=== PATIENT | female | born 1935 | race Caucasian/White ===

== ENCOUNTER → 2022-01-17 14:14 | Outpatient (CLI) | payer MEDICARE, SELFPAY ==
--- NOTE | ~2022-01-17 | XR_ITS ---
EXAMINATION: XR lumbar spine 2-3V DATE: 01/17/2022 14:29 INDICATION: Low back pain TECHNIQUE: Anteroposterior and lateral views of the lumbar spine, and cone-down lateral view of the l umbosacral junction were obtained. COMPARISON: 07/17/2018 FINDINGS: Osteopenia limits sensitivity for fracture. There is a burst fracture of T11, new since the comparison examination. There there is mild loss of vertebral body heights at L2, L3, and L4. Alignm ent is normal. There is moderate loss of disc space height at L4-5 and L5-S1. IMPRESSION: 1. Age-indeterminate burst fracture of T11. 2. Mild compression fractures of L2, L3, and L4. Reviewed, dictated and finalized at location B.
== END ==
PROVIDERS: PCP Internal Medicine; Visit Provider Internal Medicine
DX: S22.081A Stable burst fracture of T11-T12 vertebra, initial encounter for closed fracture (principal); S32.020A Wedge compression fracture of second lumbar vertebra, initial encounter for closed fracture; S32.030A Wedge compression fracture of third lumbar vertebra, initial encounter for closed fracture; S32.040A Wedge compression fracture of fourth lumbar vertebra, initial encounter for closed fracture; X58.XXXA Exposure to other specified factors, initial encounter
CPT/HCPCS: 72100

== ENCOUNTER 2022-01-22 13:26 | Outpatient (CLI) | payer MEDICARE, SELFPAY ==
[2022-01-22 13:57] LABS: Appearance Urine Slightly Cloudy (Clear); Bilirubin Urine 1+ (Negative); Color Urine Yellow (Yellow); Glucose Urine UA Negative (Negative); Ketones Urine 1+ mg/dL (Negative); Leukocyte Esterase Ur 1+ LEU/UL (Negative); Nitrate Urine Negative (Negative); Protein Urine 2+ mg/dL (Negative); Specific Grav Ur 1.025 (1.001-1.035); Urobilinogen Urine 0.2 mg/dL (<2.0); pH Urine 5.5 (5.0-9.0)
[2022-01-22 14:24] LABS: Amorphous Sediment Urine Few; Budding Yeast Urine Present /hpf; Mucus Urine Rare /lpf; RBC Urine >75 /hpf (0-2); Squamous Epithelial Cell Urine Rare /hpf (Few); WBC Urine 31-50 /hpf
[2022-01-22 14:30] LABS: Add Urine Microscopic? YES; Blood Urine Trace-Intact (Negative)
== END 2022-01-22 13:27 | disposition home or self-care (01) ==
LOC: ANHLAB 13:27
PROVIDERS: PCP Internal Medicine; Visit Provider Internal Medicine
DX: N39.0 Urinary tract infection, site not specified (principal)
CPT/HCPCS: 81001; 87086; 87088; 87147

== ENCOUNTER 2022-01-31 08:33 | Outpatient (CLI) | payer MEDICARE, SELFPAY ==
--- NOTE | ~2022-01-31 | CT_ITS ---
EXAMINATION: CT abdomen pelvis wo/w con DATE: 01/31/2022 09:34 INDICATION: Kidney stone TECHNIQUE: Computed tomography (CT) of the abdomen and pelvis was performed without and subsequently with 130 CC Omnipaque 300 intravenous contrast. Automated exposure control and iterative reconstructi on technique were employed. Exam dose: 442.50 mGy-cm total exam DLP. COMPARISON: None. FINDINGS: There is mild discoid atelectasis or scarring at the lung bases. Normal heart size. No pericardial or pleural effusion. There is gallbladder wall thickening and contrast enhancement. No obvious gallstones are noted by CT examination. Ultrasound would be more sensitive. No pericholecystic fluid or fat stranding. The commo n bile duct measures up to 6.5 mm, borderline. No hepatic space-occupying mass lesion is noted otherwise. Normal splenic size. No pancreatic mass lesion or calcification. No pancreatic duct dilatation. No adrenal mass lesion. 4 mm upper pole left renal cyst. No urinary tract calculus or hydroureteronephrosis. The uterus appears to be present, with some fluid in the endometrial cavity. There is a prominent amount of fecal material within the colon; no bowel obstruction is evident. No e vidence of intraperitoneal free air. There is atherosclerotic calcification of the abdominal aorta but no aneurysm. No intraperitoneal or retroperitoneal or pelvic mass lesion or adenopathy or ascites is noted. Prominent burst fracture deformity and sclerosis of T11. Otherwise there is diffuse osteopenia. There is biconcavity of the lumbar vertebrae, most severe at L4. Grade 1 anterolisthesis at L4-5 due to prominent degenerative change at the apophyseal joints. Bilate ral hip osteoarthritis. IMPRESSION: Gallbladder wall thickening contrast enhancement. Recommend clinical correlation, possib ly gallbladder ultrasound. Very small anterior hepatic cysts, medial segment of the left hepatic lobe Common bile duct measures up to 6.5 mm, borderline. 4 mm upper pole left renal cyst. No urinary tract calculus or hydroureteronephrosis. The uterus appears to be present, with some fluid in the endometrial cavity. Prominent burst fracture deformity and sclerosis of T11. Otherwise there is diffuse osteopenia. There is biconcavity of the lumbar vertebrae, most severe at L4. Grade 1 anterolisthesis at L4-5 due to prominent degenerative change at the apophyseal joints. Bilate ral hip osteoarthritis. Reviewed, dictated and finalized at Location A. Reviewed, dictated and finalized at location B. IMPRESSION: Gallbladder wall thickening contrast enhancement. Recommend clinic al correlation, possibly gallbladder ultrasound. Very small anterior hepatic cysts, medial segment of the left hepatic lobe Common bile duct measures up to 6.5 mm, borderline. 4 mm upper pole left renal cyst. No urinary tract calculus or hydroureteronephr osis. The uterus appears to be present, with some fluid in the endometrial cavity. Prominent burst fracture deformity and sclerosis of T11. Otherwise there is dif fuse osteopenia. There is biconcavity of the lumbar vertebrae, most severe at L 4. Grade 1 anterolisthesis at L4-5 due to prominent degenerative change at the apo physeal joints. Bilateral hip osteoarthritis.
[2022-01-31 09:17] LABS: Estimated Glomerular Filt Rate 60
== END 2022-01-31 08:34 | disposition home or self-care (01) ==
PROVIDERS: PCP Internal Medicine; Visit Provider Internal Medicine
DX: R31.29 Other microscopic hematuria (principal); S22.081A Stable burst fracture of T11-T12 vertebra, initial encounter for closed fracture; X58.XXXA Exposure to other specified factors, initial encounter
CPT/HCPCS: 74178; Q9967

== ENCOUNTER 2022-02-12 14:40 | Outpatient (CLI) | payer MEDICARE, SELFPAY | END 2022-02-12 14:41 | disposition home or self-care (01) | PROVIDERS: PCP Internal Medicine; Visit Provider Internal Medicine | DX: N39.0 Urinary tract infection, site not specified (principal) | CPT/HCPCS: 87086; 87088 ==

== ENCOUNTER → 2022-02-21 07:32 | Outpatient (CLI) | payer MEDICARE, SELFPAY ==
--- NOTE | ~2022-02-21 | US_ITS ---
EXAMINATION: US abdomen limited DATE: 02/21/2022 07:52 INDICATION: Gallbladder wall thickening. TECHNIQUE: Multiple grayscale and Doppler ultrasound images of the abdomen were obtained. COMPARISON: CT abdomen and pelvis 01/31/2022 FINDINGS: Abdominal aorta is normal in caliber. The visualized portions of the head and body of the p ancreas are normal. The liver is normal without focal lesion. There is normal flow in main portal vei n. The gallbladder is normal in size. No gallstones. Gallbladder wall thickening is noted. There was no sonographic Peña sign. The common duct is normal and measures 3 mm. IMPRESSION: 1. Gallbladder wall thickening. This finding may be seen with chronic cholecystitis, chronic liver di sease, or interstitial edema. Reviewed, dictated and finalized at location A. IMPRESSION: 1. Gallbladder wall thickening. This finding may be seen with chronic cholecyst itis, chronic liver disease, or interstitial edema.
== END ==
PROVIDERS: PCP Internal Medicine; Visit Provider Internal Medicine
DX: R93.2 Abnormal findings on diagnostic imaging of liver and biliary tract (principal)
CPT/HCPCS: 76705

== ENCOUNTER 2022-04-16 14:06 | Outpatient (CLI) | payer MEDICARE, SELFPAY ==
--- NOTE | ~2022-04-16 | DEXA_ITS ---
Bone Density Report Name: JULIO C FOSTER Age: 86 Sex: Female Ethnicity: White Date of : 1935 Indication: postmenopausal; screening for osteoporosis; height loss; prior fracture; Referring Provider: IVETTE, GERBER Study: Bone densitometry was performed. Exam Date: April 16, 2022 Accession number: [id number] Bone Density: Region BMD T-score Z-score Classification AP Spine(L3, L4) 0.574 -4.8 -1.8 Osteoporosis Femoral Neck (Left) 0.430 -3.8 -1.3 Osteoporosis Total Hip (Left) 0.460 -4.0 -1.6 Osteoporosis Femoral Neck (Right) 0.421 -3.9 -1.3 Osteoporosis Total Hip (Right) 0.467 -3.9 -1.6 Osteoporosis Total Hip Mean 0.463 -4.0 -1.6 Osteoporosis World Health Organization criteria for BMD impression classify patients as: Normal (T-score at or above -1.0), Osteopenia (T-score between -1.0 and -2.5), or Osteoporosis (T-score at or below -2.5). 10-year Fracture Risk: FRAX not reported because: Some T-score for Spine Total or Hip Total or Femoral Neck at or below -2.5 Prior hip or vertebral fracture Clinical Information Provided by Patient: Have had a previous hip or vertebral fracture Has had a low trauma fracture Has used the following medications: Calcium Patient maximum height was 65 Menopause Age: 47 No regular weight bearing exercise Onset of menses at age 15 Number of children 1 Impression: The patient has established osteoporosis, based on the Total Spine T-score and the existence of a prior fracture. The patient has risk factors, including: previous fracture. Discussion: HIGH RISK OF FRACTURE. BONE DENSITY IS UNDESIRABLY LOW AT ONE OR MORE SKELETAL SITES, CONSISTENT WITH POSTMENOPAUSAL OSTEOPOROSIS. This patient's lowest T-score, in a patient who has previously fractured, meets the World Health Organization's (WHO) criteria for severe osteoporosis. In untreated patients, the risk of osteoporotic fracture increases approximately two-fold for each 1.0 SD decrease in T-score. Low bone density is not the only risk factor for fracture; also consider factors such as patient's age, frailty or poor health, risk of falling, risk of injury, previous osteoporotic fracture, family history of osteoporosis, cigarette smoking, low body weight, etc. Not everyone with low bone mineral density has osteoporosis; osteomalacia and other metabolic bone disorders should also be considered. Patients who have osteoporosis should be evaluated for specific diseases and conditions (secondary causes) that may cause or contribute to bone loss. The [place] Association of Clinical Endocrinologists (AACE) and National Osteoporosis Foundation (NOF) recommend pharmacologic intervention for all postmenopausal women with a previous hip or vertebral fracture and a T-score in this range. The patient should follow a healthful
== END 2022-04-16 14:07 | disposition home or self-care (01) ==
PROVIDERS: PCP Internal Medicine; Visit Provider Internal Medicine
DX: M81.0 Age-related osteoporosis without current pathological fracture (principal)
CPT/HCPCS: 77080

== ENCOUNTER 2023-06-04 13:30 | Outpatient (RCR) | payer MEDICARE, SELFPAY ==
--- NOTE | 2023-05-01 14:51 | PTOPEVAL1 ---
Assessment and note entered by Shiraz Bardales Evaluation Information Assessment Status Evaluation Diagnosis sciatica, low back pain Onset 04/09/23 Subjective Information Pt. reports she has had back and leg pain for years. She describes pain going across the low back and into the legs. She reports that pain is more intense into the right. She states that pain becomes more intense with long periods of standing. She notices pain while trying to cook supper. She reports that she can only stand for about 15 minutes before having to sit. She reports she has hx of thyroid complication and was bein over medicated, which has also resulted in her fatiguing easily. She reports that her goal is to reduce her pain levels with standing Reported Pain Level Pain Score 3: Self Report Assessment PT Clinical Summary Pt. is an 87 year old female with hx of chronic low back pain and osteoporosis. She presents with impaired flexibility, impaired postural awareness , back pain, l.e. weakness and impaired balance. Continued skilled PT is indicated in order to improve these areas to allow the pt. to participate in all IADL's without limitation. Plan of Care Interventions Electrical Stimulation,Gait Training,Hot Pack/Cold Pack,Manual Therapy,Neuro Re-education,Patient/ Caregiver Educati,Therapeutic Activities, Therapeutic Exercise PT Services Indicated Yes Treatment Frequency and 2x/week x 10 visits Duration These treatments will address the objective and functional deficits as defined above. The patient will be advanced safely and appropriately in order for the patient to progress towards his/her prior level of function. Additional exercises will be introduced and as well as a comprehensive home exercise program upon discharge, if needed, ?to ensure carryover of functional gains achieved in the clinic. This treatment plan has been reviewed and agreement upon by the patient.
--- NOTE | 2023-05-01 14:52 | OPREHPOC ---
Outpatient Therapy Plan of Care This is a Multidisciplinary Plan of Care that may contain components documented by all disciplines (PT, OT, and ST.) PT Problem 1 PT Problem #1 Knowledge Deficit PT Goal 1 Goal Independent with a HEP addressing trunk mobility and core strength Target Visit 2 PT Problem 2 PT Problem #2 Impaired Balance PT Goal 1 Goal Increase tinetti score to 24 or greater indicating low fall risk and improved safety. Target Visit 10 PT Problem 3 PT Problem #3 Impaired Flexibility PT Goal 1 Goal Increase bilateral hamstring flexibility to 20 degrees or less with the 90/90 test to improve postural awareness. Target Visit 10 PT Problem 4 PT Problem #4 Impaired Functional Mobil PT Goal 1 Goal Pt. will be able to safely lift object from floor to waist without pain increase. Target Visit 10 PT Goal 2 Goal Pt. will provide subjective reports of being able to stand for 30 minutes with 5/10 pain at worst.
--- NOTE | 2023-06-04 14:23 | PTOPDC ---
Assessment and note entered by Rena Yo, PT Evaluation Information Assessment Status Discharge Diagnosis sciatica, low back pain Onset 04/09/23 Subjective Information have had balance problems for past year since had COVID and tyroid problems; started to see womens volleyball coach and new meds are helping her feel better; have been doing her exercises at home; would like to be finished with therapy and do the exercises on her own at home; Reported Pain Level Pain Score Self Report Additional Pain Score Comments pain range of 0-9/10 R lateral hip and to mid thigh decrease pain with motrin, when awaken in AM increase pain: after about 1 hour of home tasks and care for , who is disabled, she occasionally has to assist him to stand up; pt has to do all home tasks; pt has not been using heat- reinforced PRN use for back pain- caution with skin and not have too hot to burn herself Assessment PT Clinical Summary Lacy has received 7 PT sessions. Compared to the initial evaluation: pain range is about the same; reported standing tolerance has increase from 15 to 60 min; Tinetti balance score improved from 19 to 28/28; Oswestry self assessment from 50% to 30% limitation in activity level; hamstring length has improved flexibility; increase LE and trunk strength; education completed for HEP and posture. The goals were partially met. Discharge PT services; she is to continue with her exercises at home. Plan of Care PT Services Indicated No
== END 2023-06-04 14:58 | disposition home or self-care (01) ==
LOC: ANHPT 13:30
PROVIDERS: PCP Family Medicine; Visit Provider Family Medicine
DX: M54.30 Sciatica, unspecified side (principal)
CPT/HCPCS: 97110; 97140; 97161; 97530

== ENCOUNTER 2024-01-16 13:34 | Outpatient (CLI) | payer MEDICARE, SELFPAY ==
--- NOTE | ~2024-01-16 | XR_ITS ---
XR hip BI 2V w AP pelvis Ordering provider: Fernando Ramírez MD History: . M79.604 - Pain in right leg . Comparison: None. FINDINGS: BONES: No acute fracture or dislocation. HIP JOINT SPACES: Normal. SACROILIAC JOINT SPACES/LUMBAR SPINE: The sacroiliac joint spaces are normal. Mild degenerative winslow es of the visualized lower lumbar spine. PUBIC SYMPHYSIS: Normal. SOFT TISSUES: Normal. Safety pin is projected over the left side of the abdomen. IMPRESSION: No acute osseous abnormality of the bilateral hips and pelvis. Reviewed, dictated and finalized at location A.
== END 2024-01-16 13:35 | disposition home or self-care (01) ==
PROVIDERS: PCP Family Medicine; Visit Provider Family Medicine
DX: M79.604 Pain in right leg (principal)
CPT/HCPCS: 73521

== ENCOUNTER 2024-01-27 13:13 | Outpatient (CLI) | payer MEDICARE, SELFPAY ==
--- NOTE | 2024-01-27 13:24 | ECHO_ITS ---
Patient Info Name: Day Payan Age: 88 years : 1935 Gender: Female Ht: 60 in Wt: 97 lbs BSA: 1.36 m2 HR: 87 bpm BP: 179 / 96 mmHg Heart Rhythm: Sinus Rhythm Technical Quality: Good Exam Date: 01/27/2024 1:31 PM Exam Location: Echo Lab Patient Status: Outpatient Admit Date: 01/27/2024 Staff Ordering Physician: Delicia Nicholas APRN Groundsman: Cara Sosa RDCS Attending Provider: Delicia Nicholas APRN Exam Type: CA echo doppler color flow Study Info Complete two-dimensional, color flow and Doppler transthoracic echocardiogram is performed. Summary 1. Complete two-dimensional, color flow and Doppler transthoracic echocardiogram is performed. 2. Left ventricular chamber dimension is normal. 3. Left ventricular systolic function is normal, estimated at 65-70%. 4. The left ventricular diastolic function is grade I diastolic dysfunction. 5. E/e' 10 is mildly elevated. 6. Left atrial chamber dimension is moderately enlarged. 7. There is moderate aortic valve sclerosis. 8. There is trace aortic valve regurgitation. Left Ventricle E/e' 10 is mildly elevated. Left ventricular chamber dimension is normal. Left ventricular systolic function is normal, estimated at 65-70%. The left ventricular diastolic function is grade I diastolic dysfunction. Right Ventricle Right ventricular systolic function is normal and with normal TAPSE 2.2 cm. Right ventricular chamber dimension is normal. Left Atria Left atrial chamber dimension is moderately enlarged. Right Atria Right atrial chamber dimension is normal. Aortic Valve The aortic valve is trileaflet. There is moderate aortic valve sclerosis. There is no aortic valve stenosis. There is trace aortic valve regurgitation. Pulmonic Valve There is no pulmonic regurgitation. Mitral Valve There is no mitral valve stenosis. There is no mitral valve regurgitation. Tricuspid Valve There is no tricuspid valve regurgitation. Pericardium/Pleural There is no pericardial effusion. Inferior Vena Cava Normal inferior vena cava with >50% collapse upon inspiration consistent with normal right atrial pressure, 5 mmHg. Aorta The aortic root size at the sinus of Valsalva is normal. Tricuspid Valve Name Value Normal Estimated PAP/RSVP RA Pressure 5 mmHg <=5 Report Signatures
== END 2024-01-27 13:14 | disposition home or self-care (01) ==
PROVIDERS: PCP Family Medicine; Visit Provider Nurse Practitioner Family
DX: R06.02 Shortness of breath (principal); R53.83 Other fatigue
CPT/HCPCS: 93306

== ENCOUNTER 2024-04-22 14:36 | Outpatient (CLI) | payer MEDICARE, SELFPAY ==
--- NOTE | ~2024-04-22 | XR_ITS ---
3 VIEWS PARANASAL SINUSES Ordering provider: Fernando Ramírez MD History: . J32.9 - Chronic sinusitis, unspecified . Comparison: None. FINDINGS: BONES: No acute fracture as visualized. PARANASAL SINUSES: Well aerated. No air fluid levels. SOFT TISSUES: Normal. IMPRESSION: NO EVIDENCE OF SINUS DISEASE. Reviewed, dictated and finalized at location A.
== END 2024-04-22 14:37 | disposition home or self-care (01) ==
LOC: MICIMG 14:36
PROVIDERS: PCP Family Medicine; Visit Provider Family Medicine
DX: J32.9 Chronic sinusitis, unspecified (principal)
CPT/HCPCS: 70220

== ENCOUNTER 2024-12-08 13:19 | Outpatient (CLI) | payer MEDICARE, SELFPAY ==
--- NOTE | ~2024-12-08 | DEXA_ITS ---
Bone Density Report Name: JULIO C FOSTER Age: 88 Sex: Female Ethnicity: White Date of : 1935 Indication: postmenopausal osteoporosis; height loss; prior fracture; Referring Provider: FLORINDA PORTILLO Study: Bone densitometry was performed. Exam Date: December 08, 2024 Accession number: [id number] Bone Density: Region BMD T-score Z-score Classification AP Spine(L3, L4) 0.562 -4.9 -1.9 Osteoporosis Femoral Neck (Left) 0.415 -3.9 -1.4 Osteoporosis Total Hip (Left) 0.466 -3.9 -1.6 Osteoporosis Femoral Neck (Right) 0.428 -3.8 -1.3 Osteoporosis Total Hip (Right) 0.472 -3.9 -1.5 Osteoporosis Total Hip Mean 0.469 -3.9 -1.6 Osteoporosis World Health Organization criteria for BMD impression classify patients as: Normal (T-score at or above -1.0), Osteopenia (T-score between -1.0 and -2.5), or Osteoporosis (T-score at or below -2.5). 10-year Fracture Risk: FRAX not reported because: Some T-score for Spine Total or Hip Total or Femoral Neck at or below -2.5 Previous Exams: Region Exam Age BMD T-score BMD Change BMD Change Date g/cm2 vs Baseline vs Previous AP Spine (L3-L4) 12/08/2024 88 0.562 -4.9 -0.012 (-2.0%) -0.012 (-2.0%) 04/16/2022 86 0.574 -4.8 Total Hip(Left) 12/08/2024 88 0.466 -3.9 0.007 (1.5%)# 0.007 (1.5%)# 04/16/2022 86 0.460 -4.0 Total Hip(Right) 12/08/2024 88 0.472 -3.9 0.005 (1.2%)# 0.005 (1.2%)# 04/16/2022 86 0.467 -3.9 *Denotes significance at 95% confidence level, LSC for AP Spine = 0.022 g/cm2, LSC for Total Hip = 0.027 g/cm2 # Denotes dissimilar scan types or analysis methods Clinical Information Provided by Patient: Has had a low trauma fracture Has used the following medications: Vitamin D, Calcium Patient maximum height was 65 Menopause Age: 47 No regular weight bearing exercise Drinks caffeinated beverages Onset of menses at age 15 Number of children 1 Impression: The patient has established osteoporosis, based on the Total Spine T-score and the existence of a prior fracture. The patient has risk factors, including: previous fracture. No significant bone loss was observed. Discussion: HIGH RISK OF FRACTURE. BONE DENSITY IS UNDESIRABLY LOW AT ONE OR MORE SKELETAL SITES, CONSISTENT WITH POSTMENOPAUSAL OSTEOPOROSIS. This patient's lowest T-score, in a patient who has previously fractured, meets the World Health Organization's (WHO) criteria for severe osteoporosis. In untreated patients, the risk of osteoporotic fracture increases approximately two-fold for each 1.0 SD decrease in T-score. Low bone density is not the only risk factor for fracture; also consider factors such as patient's age, frailty or poor health, risk of falling, risk of injury, previous osteoporotic fracture, family history of osteoporosis, cigarette smoking, low body weight, etc. Not everyone with low bone mineral density has osteoporosis; osteomalacia and other metabolic bone disorders should also be considered. Patients who have osteoporosis should be evaluated for specific diseases and conditions (secondary causes) that may cause or contribute to bone loss. The [place] Association of Clinical Endocrinologists (AACE) and National Osteoporosis Foundation (NOF) recommend pharmacologic intervention for all postmenopausal women whose T-score is in this range. The patient should follow a healthful lifestyle (good nutrition with adequate calcium and vitamin D, and appropriate weight-bearing exercise). Follow-Up: Consider a repeat BMD and Vertebral Fracture Assessment (VFA) exam in 2 years or sooner if medically necessary, to reassess this patient's status. Reported by: KATERYNA on 12/08/2024 1:49:00 PM. Reviewed, dictated and finalized at location A.
--- OUTSIDE RECORDS SUMMARY | 2024-12-08 13:27 | XMS_ITS | Clinical Summary ---
Author Organization [facility] Address [address] [place] [address] Care Team Providers Care Platform Power Technician Name Role Phone Fernando Ramírez MD Primary Care Provider [phone] Allergies No known active allergies Medications levothyroxine 100 mcg tablet 08/31/2022 Acti ve cyanocobalamin (VITAMIN B-12) 100 mcg tablet Take 100 mcg by mouth daily. 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 Encounters Date Type Department Care Team Description 12/02/2024 External Device Data [facility] Provider, Abstract 12/01/2024 External Device Data [facility] Provider, Abstract 11/30/2024 External Device Data [facility] Provider, Abstract from Last 3 Months Family History Medical History Relation Name Comments Diabetes Daughter Relation Name Status Comments Daughter Alive Father Mother Sister 1 Alive Sister 2 Alive Social History Tobacco Use Types Packs/Day Years Used Date Smoking Tobacco: Never Smokeless Tobacco: Never Tobacco Cessation:Counseling Given: Not Answered Alcohol Use Standard Drinks/Week Comments Yes 0 (1 standard drink = 0.6 oz pur e alcohol) Comments No Sex and Gender Information Value Date Recorded Sex Assigned at Not on file Legal Sex Female 2:02 PM CDT Gender Identity Not on file Sexual Orientation Not on file Last Filed Vital Signs Vital Sign Reading Time Taken Comments Blood Pressure 137/73 04/26/2024 2:43 PM CDT Pulse 79 04/26/2024 2:43 PM CDT Temperature 36.8 C (98.2 F) 04/26/2024 2:43 PM CDT Respiratory Rate 16 04/26/2024 2:43 PM CDT Oxygen Saturation 97% 04/26/2024 2:43 PM CDT Inhaled Oxygen Concentration - - Weight 45.4 kg (100 lb) 04/26/2024 2:43 PM CDT Height 160 cm (5' 3) 04/24/2022 2:44 PM CDT Body Mass Index 17.71 04/24/2022 2:44 PM CDT Plan of Treatment Upcoming Encounters Date Type Department Care Team (Late st Contact Info) Description 04/26/2025 1:15 PM CDT Office Visit [facility] [place] [address] [facility] [address] [place] [address] Kartik Huynh MD [address] [place] [address] Health Maintenance Due Date Last Done Comments DTAP/TDAP/TD VACCINES (1 - Tdap) 12/23/1954 PNEUMOCOCCAL VACCINE 50+ YEARS (1 of 1 - PCV) 12/22/18 88 ZOSTER VACCINE (1 of 2) 1986 OSTEOPOROSIS SCREENING 2001 RSV VACCINE (60+ or ) (1 - 1-dose 75+ series) 12/23/2011 INFLUENZA VACCINE (#1) 2024 Insurance [facility] MCR Care Teams Platform Power Technician Relationship Specialty Start Date End Date Fernando Ramírez MD [address] [place] [address] PCP - General Family Practice 04/23/23
== END 2024-12-08 13:20 | disposition home or self-care (01) ==
PROVIDERS: PCP Internal Medicine Endocrinology, Diabetes & Metabolism; Visit Provider Family Medicine
DX: M81.0 Age-related osteoporosis without current pathological fracture (principal)
CPT/HCPCS: 77080

== ENCOUNTER 2025-01-25 15:32 | Outpatient (CLI) | payer MEDICARE, SELFPAY ==
--- NOTE | ~2025-01-25 | MR_ITS ---
MRI of the lumbar spine Clinical History: Spinal stenosis Technique: Axial T2-weighted images, and sagittal T1-weighted, T2-weighted, and T2 fat-sat images wer e acquired. Findings: There is probable late subacute to chronic compression fracture of L4 with loss of height a nd minimal marrow edema. Chronic compression fracture of T11 present, severe in degree. There is 6 mm anterolisthesis of L4 over L5. At L1-L2, there is no disc bulge or herniation. There is mild to moderate facet arthropathy. No centr al canal stenosis or neural foraminal narrowing. L2-L3, there is minimal disc bulge with moderate facet arthropathy. No central canal stenosis or neur al foraminal narrowing. At L3-L4, there is disc bulge with moderate to advanced facet arthropathy. No central canal stenosis. There is mild bilateral neural foraminal narrowing. At L4-L5, there is disc bulge/uncovering with severe facet arthropathy, resulting in severe spinal ca nal stenosis/thecal sac compression. There is severe left neural foraminal narrowing. There is mild r ight neural foraminal narrowing. At L5-S1, there is minimal disc bulge with moderate facet arthropathy. No central canal stenosis or n eural foraminal narrowing. Paravertebral soft tissues are unremarkable. Impression: Late subacute to chronic L4 compression fracture. Chronic T11 compression fracture. 6 mm anterolisthesis of L4 over L5. Severe degenerative spondylosis at L4-L5, as detailed above. Mild degenerative change of the remainder of the lumbar spine, as above. Reviewed, dictated and finalized at [facility]. Impression: Late subacute to chronic L4 compression fracture. Chronic T11 compression fract ure. 6 mm anterolisthesis of L4 over L5. Severe degenerative spondylosis at L4-L5, a s detailed above. Mild degenerative change of the remainder of the lumbar spine, as above.
== END 2025-01-25 15:33 | disposition home or self-care (01) ==
LOC: MICIMG 15:33
PROVIDERS: PCP Family Medicine; Visit Provider Anesthesiology Pain Medicine
DX: S32.040A Wedge compression fracture of fourth lumbar vertebra, initial encounter for closed fracture (principal); M43.16 Spondylolisthesis, lumbar region; M47.896 Other spondylosis, lumbar region; S22.080A Wedge compression fracture of T11-T12 vertebra, initial encounter for closed fracture; G89.29 Other chronic pain; M48.062 Spinal stenosis, lumbar region with neurogenic claudication; M47.817 Spondylosis without myelopathy or radiculopathy, lumbosacral region; X58.XXXA Exposure to other specified factors, initial encounter
CPT/HCPCS: 72148

== ENCOUNTER 2025-03-08 14:15 | Outpatient (CLI) | payer MEDICARE, SELFPAY ==
--- NOTE | ~2025-03-08 | XR_ITS ---
EXAMINATION: XR lumbar spine 2-3V DATE: 03/08/2025 14:36 INDICATION: Low back pain, unspecified TECHNIQUE: 3 images of the lumbar spine were obtained. COMPARISON: Lumbar spine MRI 01/25/2025 FINDINGS: Bone mineralization is within normal limits. Moderate levoconvex curvature of the lumbar spine.There is bowel gas and stool projecting over the pelvis which limits evaluation. New compression fracture of the L3 vertebral body with 70% vertebral body height loss. The finding is consistent with an acute compression fracture. The finding is new as compared to the MRI study from 01/25/2025. Stable compression fracture of the L4 vertebral body. Stable grade 1 anterolisthesis of L4 on L5. Degenerative changes are similar to the MRI study from 01/25/2025. IMPRESSION: 1. New compression fracture of the L3 vertebral body with 70% vertebral body height loss. The finding is consistent with an acute compression fracture. The finding is new as compared to the MRI study from 01/25/2025. 2. Otherwise, the findings are similar to the MRI lumbar spine study from 01/25/2025 Reviewed, dictated and finalized at location Q. IMPRESSION: 1. New compression fracture of the L3 vertebral body with 70% vertebral body he ight loss. The finding is consistent with an acute compression fracture. The fi nding is new as compared to the MRI study from 01/25/2025. 2. Otherwise, the findings are similar to the MRI lumbar spine study from 2024
--- NOTE | ~2025-03-08 | XR_ITS ---
XR hip RT min 2V 03/08/2025 14:37 Indication: Right hip pain. Procedure: 2 views right hip Comparison: 01/16/2024 Findings: Mild osteoarthritis of the right hip. No fracture, subluxation or dislocation. No soft tissue abnormality. No foreign body. Impression: 1: Mild osteoarthritis of the right hip. Reviewed, dictated and finalized at location O. Impression: 1: Mild osteoarthritis of the right hip.
== END 2025-03-08 14:16 | disposition home or self-care (01) ==
LOC: MICIMG 14:17
PROVIDERS: PCP Family Medicine; Visit Provider Family Medicine
DX: S32.030D Wedge compression fracture of third lumbar vertebra, subsequent encounter for fracture with routine healing (principal); X58.XXXD Exposure to other specified factors, subsequent encounter; M16.11 Unilateral primary osteoarthritis, right hip
CPT/HCPCS: 72100; 73502

== ENCOUNTER 2025-03-28 16:13 | Emergency (ER) | payer MEDICARE, SELFPAY ==
--- NOTE | ~2025-03-28 | CT_ITS ---
EXAMINATION: CT lumbar spine wo con DATE: 03/28/2025 18:15 INDICATION: Low back pain. TECHNIQUE: Computed tomography (CT) of the lumbar spine was performed without intravenous contrast. Automated exposure control and iterative reconstruction technique were employed. The dose-length product was 172.91 mGy-cm. COMPARISON: Lumbar spine radiographs 03/08/2025 FINDINGS: There is 9 degrees levocurvature of lumbar spine. There are chronic burst fractures of L2 and L4. There is 4 mm anterolisthesis of L4 and L5. There is a burst fracture of L3 with 3/5 loss of height and retropulsion of bone 4 mm into central spinal canal. There is mildly decreased disc height at L4-L5. The following disc levels are specifically discussed: L1-L2: The disc is bulging. There is mild bilateral facet joint osteoarthritis. There is mild bilateral neural foraminal stenosis. There is no central canal stenosis. L2-L3: The disc is bulging. There is moderate right and mild left facet joint osteoarthritis. There is mild bilateral neural foraminal stenosis. There is mild central canal stenosis. L3-L4: The disc is bulging. There is moderate bilateral facet joint osteoarthritis. There is mild bilateral neural foraminal stenosis. There is mild central canal stenosis. L4-L5: The disc is bulging. There is severe bilateral facet joint osteoarthritis. There is moderate bilateral neural foraminal stenosis. There is severe central canal stenosis. L5-S1: The disc is bulging. There is severe bilateral facet joint osteoarthritis. There is mild bilateral neural foraminal stenosis. There is mild central canal stenosis. IMPRESSION: 1. Subacute L3 burst fracture, stable from 03/08/2025. 2. Severe spondylosis at L4-L5. Reviewed, dictated and finalized at location K.
[2025-03-28 16:37] VITALS: BP 200/78; PULSE 84; RESP 16; TEMP 37.1; O2SAT 98
[2025-03-28 16:59] VITALS: BP 205/100; PULSE 81; RESP 16; O2SAT 100
--- NOTE | 2025-03-28 17:00 | PC.NURSE ---
Pt. states she has not taken her blood pressure medication in 2-3 days. Pt. is asymptomatic.
--- NOTE | 2025-03-28 17:35 | ED.BACK ---
HPI - Back Pain/Injury General Chief Complaint: Back Pain/Injury Stated Complaint: back pain Time Seen by Provider: 03/28/25 17:04 History of Present Illness HPI Narrative: Pt is an 89-year-old female who presents to the ER with complaints of lower back pain. She reports she leaned over approximately 7 weeks ago and heard something crack. Patient reports she has a history of a fractured spine. She reports her primary care provider has given her pain medication and ordered imaging in the past. Patient reports the pain has not been controlled by tramadol. She reports that starts on the right side of her buttocks, radiates down her hip and around her right knee. Patient denies any saddle anesthesia, loss of continence, or numbness/tingling in her extremities. She endorses a history of osteoporosis, high blood pressure, and she sees an flanging operator. Related Data Home Medications ?Medication ?Instructions ?Recorded ?Confirmed ?Last Taken ?Type mecobalamin (vitamin B12) 500 mcg 500 mcg PO DAILY 10/15/23 01/31/25 Unknown History chewable tablet Allergies Allergy/AdvReac Type Severity Reaction Status Date / Time No Known Allergies Allergy Verified 01/31/25 12:16 Review of Systems Review of Systems: All systems reviewed & are unremarkable except as noted in HPI and below PMFSH Past Medical History Medical History COVID-19 Broken toe Thyroid disorder Allergies Hypothyroidism (acquired) Kyphoscoliosis Osteoporosis Family History Family History Father Hypertension Family history of elevated blood lipids Family history of coronary artery disease, Onset Age: 88 Patient's father is Family history of dementia Family history of Alzheimer's disease Mother Hypertension Family history of elevated blood lipids Cerebrovascular accident Patient's mother is Family history of osteoporosis Family history of hearing loss Daughter Diabetes mellitus Social History Social History Smoking status: Never smoker Alcohol intake: never Substance use: never Do You Feel Safe in your Home?: Yes Lack of Transportation: No Lack of Food: Never True Current Housing: I Have Housing Concerned About Future Housing: No Difficulty Paying Gas/Electric Bills: No Difficulty Paying for Meds: No Currently Unemployed: No Education: High School Diploma/GED Difficulty w/ Childcare or Family Care: No Living arrangements: with family Spiritual care concerns: No Exam Narrative: GENERAL: Well appearing, well-nourished, non-toxic, in no acute distress. HEAD: Normocephalic, atraumatic. NECK: Supple. No adenopathy, no masses. RESPIRATORY: Airway patent, respirations nonlabored. Clear to auscultation bilaterally, no rales, rhonchi, wheezing. CARDIOVASCULAR: Regular rate and rhythm without murmurs, rubs, or gallops. Peripheral pulses 2+ and equal bilaterally. ABDOMINAL: Soft, nontender, nondistended, no hepatosplenomegaly. Normoactive BS. MUSCULOSKELETAL: Kyphosis at baseline. Moves all extremities. Strength/ROM intact without gross deformities. Negative straight leg test bilaterally SKIN: Warm, dry, normal color. No rashes. NEURO: A&O X3. Speech clear. Cranial nerves II-XII intact. No ataxic movements. PSYCHIATRIC: Appropriate mood and affect. Normal interaction. Course Vital Signs Vital signs: Vital Signs Temperature 37.1 C 03/28/25 16:37 Pulse Rate 84 03/28/25 16:37 Respiratory Rate 16 03/28/25 16:37 Blood Pressure 200/78 H 03/28/25 16:37 Pulse Oximetry 98 03/28/25 16:37 Oxygen Delivery Room Air 03/28/25 16:37 Temperature 37.1 C 03/28/25 16:37 Pulse Rate 89 03/28/25 20:07 Respiratory Rate 17 03/28/25 20:07 Blood Pressure 189/88 H 03/28/25 20:07 Pulse Oximetry 100 03/28/25 20:07 Oxygen Delivery Room Air 03/28/25 16:37 MDM - Back Pain/Injury MDM Narrative Medical decision making narrative: Pt is an 89-year-old female who presents to the ER with complaints of lower back pain. She reports she leaned over approximately 7 weeks ago and heard something crack. Patient reports she has a history of a fractured spine. She reports her primary care provider has given her pain medication and ordered imaging in the past. Patient reports the pain has not been controlled by tramadol. She reports that starts on the right side of her buttocks, radiates down her hip and around her right knee. Patient denies any saddle anesthesia, loss of continence, or numbness/tingling in her extremities. She endorses a history of osteoporosis, high blood pressure, and she sees an flanging operator. Labs Ordered: None necessary Imaging Ordered: CT lumbar spine Medications Ordered: Prednisone 40 mg, Norvasc 2.5 mg, Toradol 30 mg IM, Raymond p.o., hydralazine 10 mg p.o. Results: Pt's CT lumbar spine indicates 1. Subacute L3 burst fracture, stable from 03/08/2025. 2. Severe spondylosis at L4-L5. Diagnosis: Subacute L3 burst fracture (already known) Consults: microbial specialist (outpatient, appointment for Friday, seven days from now) Patient Education/Shared MDM: Results of imaging shared with patient. She endorses mild improvement of symptoms following medication administration. Patient strongly advised to wear back brace at home. She should follow-up with her spine doctor on Friday, as planned. She will be discharged home with a prescription for Raymond, lidocaine patches and steroids. Patient also advised to take Tylenol and ibuprofen as needed for pain control. She reports she hasn't taken her blood pressure medication in three days, so she was strongly advised to take her BP medication as prescribed. Pt should follow-up with her PCP regarding these elevated readings. Strict return precautions provided. Patient verbalized understanding and is in agreement with plan. Vital signs stable at time of discharge. All questions answered. Differential Diagnosis Differential diagnosis: Likely lumbar radiculopathy, sciatica, strain of lumbar region, discitis and other (Previously known subacute burst fracture) Imaging Data Attestation: I personally reviewed and interpreted this imaging study as follows: Radiologist's impression: Impressions Lumbar Spine CT 03/28/25 18:20 IMPRESSION: 1. Subacute L3 burst fracture, stable from 03/08/2025. 2. Severe spondylosis at L4-L5. Discharge Plan Discharge Clinical Impression: Fracture of L3 vertebra, Back pain, Compression fracture of lumbar spine, non-traumatic, Chronic low back pain, Osteoarthritis, multiple sites Patient Disposition: Home Condition: Stable Instructions: Antibiotic Form, Back Pain in Older Children and Adolescents (ED) Additional Instructions: Please return to the ER with any worsening symptoms. Follow-up with primary care provider as soon as possible and your spine doctor on Friday, as plan. Take all medications as prescribed, including regularly scheduled medications. You may take Tylenol and ibuprofen together for pain control. Patient Language: Slovak Prescriptions: New lidocaine 5 % adhesive patch,medicated 2 patch topical DAILY Qty: 30 0RF Rx Instructions: leave on most painful area for up to 12 hrs hydrocodone-acetaminophen 5-325 mg tablet 1 tablet PO Q8H PRN (Reason: pain) Qty: 20 0RF prednisone 20 mg tablet 20 mg PO BID Qty: 10 0RF No Action mecobalamin (vitamin B12) 500 mcg tablet,chewable 500 mcg PO DAILY levothyroxine 100 mcg tablet 100 mcg PO DAILY Qty: 90 3RF amlodipine 2.5 mg tablet 2.5 mg PO DAILY Qty: 90 1RF cetirizine [Zyrtec] 10 mg tablet 10 mg PO DAILY Qty: 30 0RF albuterol sulfate [Ventolin HFA] 90 mcg/actuation HFA aerosol inhaler 1 inh inhalation Q4H PRN (Reason: shortness of breath or wheezing) Qty: 8.5 0RF ipratropium bromide 42 mcg (0.06 %) spray,non-aerosol 2 spray intranasal TID Qty: 15 5RF Rx Instructions: administer into each nostril tramadol 50 mg tablet 50 mg PO Q8H PRN (Reason: pain) Qty: 20 0RF levothyroxine [Synthroid] 112 mcg tablet 112 mcg PO DAILY Qty: 60 0RF Follow-up/Referrals: Fernando Ramírez MD [Primary Care Provider, [facility]] Time of Disposition: 20:42
--- NOTE | 2025-03-28 18:03 | PC.NURSE ---
Pt. to XR
[2025-03-28] MEDS: KETOROLAC 30 MG/ML VIAL (*BKC) IM (18:32)
--- OUTSIDE RECORDS SUMMARY | 2025-03-28 18:49 | XMS_ITS | Clinical Summary ---
Author Organization [facility] Address [address] [place] [address] Care Team Providers Care Store Warehouse Associate Name Role Phone Fernando Ramírez MD Primary Care Provider [phone] Allergies No known active allergies Medications levothyroxine 100 mcg tablet 08/31/2022 Acti ve cyanocobalamin (VITAMIN B-12) 100 mcg tablet Take 100 mcg by mouth daily. 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 Encounters Date Type Department Care Team Description 03/15/2025 External Device Data [facility] ABSTRACTION Provider, Abstract 03/01/2025 External Device Data [facility]STRACTION Provider, Abstract 02/16/2025 External Device Data [facility] ABSTRACTION Provider, Abstract 01/26/2025 External Device Data [facility]STRACTION Provider, Abstract 01/26/2025 External Device Data [facility] ABSTRACTION Provider, Abstract 01/25/2025 External Device Data [facility] ABSTRACTION Provider, Abstract 12/29/2024 External Device Data [facility] ABSTRACTION Provider, Abstract 12/28/2024 External Device Data [facility] ABSTRACTION Provider, Abstract [...] Description 04/26/2025 1:15 PM CDT Office Visit [facility] Oncology and Hematology - [place] [address] [facility] [address] [place] [address] Kartik Huynh MD [address] [facility] [address] [place] [address] Health Maintenance Due Date Last Done Comments DTAP/TDAP/TD VACCINES (1 - Tdap) 12/23/1954 PNEUMOCOCCAL VACCINE 50+ YEARS (1 of 1 - PCV) 12/22/18 87 ZOSTER VACCINE (1 of 2) 1986 OSTEOPOROSIS SCREENING 2001 RSV VACCINE (60+ or ) (1 - 1-dose 75+ series) 12/23/2011 INFLUENZA VACCINE (#1) 2025 Insurance [facility] Care Teams Store Warehouse Associate Relationship Specialty Start Date End Date Fernando Ramírez MD [address] [place] [id number] PCP - General Family Practice 04/23/23
--- OUTSIDE RECORDS SUMMARY | 2025-03-28 18:49 | XMS_ITS | Clinical Summary ---
Author Organization [facility] [employer] Address [address] [place] [address] Care Team Providers Care Case Preparer And Liner Name Role Phone Sumeet Driscoll MD Primary Care Provider [phone] Allergies No known active allergies Medications levothyroxine (SYNTHROID) 88 mcg tablet 1 Active aspirin 81 mg enteric coated tablet Take 81 mg by mouth daily Active ipratropium (ATROVENT) 42 mcg (0.06 %) nasal sprayIndication s:PND (post-nasal drip) Administer 2 sprays into each nostril 3 (three) times a day 45 mL 1 Active Active Problems Problem Noted Date Diagnosed Date Sensorineural hearing loss (SNHL) of both ears 0 12/01/2020 PND (post-nasal drip) 12/01/2020 Medical History Medical History Date Comments Allergic rhinitis Thyroid disease Tinnitus Sinusitis HL (hearing loss) Family History Medical History Relation Name Comments No Known Problems Father No Known Problems Mother Relation Name Status Comments Father Mother Social History Tobacco Use Types Packs/Day Years Used Date Smoking Tobacco: Never Smokeless Tobacco: Never Personal Safety Answer Date Recorded Getting School Help Needed Not on file 09/26 Comments Unknown Sex and Gender Information Value Date Recorded Sex Assigned at Not on file Legal Sex Female 1:08 AM NIGHT BAKER Gender Identity Not on file Sexual Orientation Not on file Obstetrics History Last Filed Vital Signs Vital Sign Reading Time Taken Comments Blood Pressure - - Pulse - - Temperature - - Respiratory Rate 18 12/01/2020 2:14 PM CDT Oxygen Saturation - - Inhaled Oxygen Concentration - - Weight 48.5 kg (107 lb) 12/01/2020 2:14 PM CDT Height 160 cm (5' 3) 12/01/2020 2:14 PM CDT Body Mass Index 18.95 12/01/2020 2:14 PM CDT Plan of Treatment Health Maintenance Due Date Last Done Comments Depression Screening 1936 Fall Risk Assessment 1936 Osteoporosis Screening-Bone Density Scan 1936 DTaP/Tdap/Td Vaccine (1 - Tdap) 12/23/1947 Hepatitis B Screening 1954 Zoster Vaccine (1 of 2) 1986 Well Visit 65+ 2001 Influenza Vaccine (#1) 2025 0, 04/21/2019, 04/22/2018, Additional history exists Pneumococcal vaccine 65+ Completed 016, 05/02/2015, 04/27/2013 Insurance [employer] CHOICE MEDICARE O [employer] MEDICARE O Care Teams Case Preparer And Liner Relationship Specialty Start Date End Date Sumeet Driscoll MD PCP - General Internal Medicine 11/16/20
--- OUTSIDE RECORDS SUMMARY | 2025-03-28 18:49 | XMS_ITS | Clinical Summary ---
Author Organization [facility] Address [address] [place] [id number] Care Team Providers Care Mold Parter Name Role Phone Unavailable Primary Care Provider Unavailabl e Social History Tobacco Use Types Packs/Day Years Used Date Smoking Tobacco: Never Assessed Comments Unknown Sex and Gender Information Value Date Recorded Sex Assigned at Not on file Legal Sex Female 3:03 PM CDT Gender Identity Not on file Sexual Orientation Not on file Plan of Treatment Health Maintenance Due Date Last Done Comments DTaP, Tdap and Td Vaccines ( 1 - Tdap) 12[birth year]23/1954 Pneumococcal Vaccine: 50+ Ye ars (1 of 1 - PCV) 1986 Zoster Vaccines (1 of 2) 1986 RSV Immunization or 60+ Years (1 - 1-dose 75+ series) 12/23/2011 COVID-19 Vaccine ( - 2023-2 5 season) 2025 Meningococcal B Vaccine Aged Out No l onger eligible based on patient's age to complete this topic Meningococcal Vaccine Aged Out No chandler anna eligible based on patient's age to complete this topic RSV Immunizations Under 20 Months Aged Out No longer eligible based on patient's age to complete this topic
[2025-03-28 20:07] VITALS: BP 189/88; PULSE 89; RESP 17; O2SAT 100
[2025-03-28] MEDS: HYDROcodone/acetaminophen (*CRX) 5-325 MG TABLET 1 TAB PO (20:12)
[2025-03-28] MEDS: LIDOCAINE 5% PATCH 1 PATCH TRANSDERM (20:56)
== END 2025-03-28 21:16 | disposition home or self-care (01) ==
PROVIDERS: Emergency Provider Registered Nurse; PCP Family Medicine
DX: S32.030A Wedge compression fracture of third lumbar vertebra, initial encounter for closed fracture (principal); M47.816 Spondylosis without myelopathy or radiculopathy, lumbar region; E03.9 Hypothyroidism, unspecified; X58.XXXA Exposure to other specified factors, initial encounter
CPT/HCPCS: 72131; 96372; 99284; A9270; J1885; J7512

== ENCOUNTER 2025-04-05 14:55 | Observation (INO) | payer MEDICARE, SELFPAY ==
[2025-04-05] VITALS (32 sets, daily range): BP systolic 124–173; BP diastolic 67–84; PULSE 60–84; RESP 11–24; TEMP 36.2–36.5; O2SAT 79–100; BMI 17.2
--- NOTE | ~2025-04-05 | MR_ITS ---
EXAMINATION: MR lumbar spine wo con DATE: 04/07/2025 13:04 INDICATION: Low back pain. Lumbar burst fractures. TECHNIQUE: Magnetic resonance imaging (MRI) of the lumbar spine was performed without intravenous contrast. Sequences included sagittal T2-weighted FSE, sagittal T2-weighted FS FSE, sagittal T1-weighted FSE, and axial T2-weighted FSE. COMPARISON: CT dated 04/05/2025 FINDINGS: 4 mm anterolisthesis L4 on L5. There are multiple burst fractures. These include a chronic T11 burst fracture with 60% central vertebral body height loss and 3 mm retropulsion, chronic L4 burst fracture with 40% central vertebral body height loss and 3 mm retropulsion, more recent burst fractures with prominent associated marrow edema with 70% central vertebral body height loss and 4 mm retropulsion at L3 and 50% central vertebral body height loss with 4 mm retropulsion at L2. Marrow signal is otherwise unremarkable. There is mild disc height loss at L4-L5. There is the central ballooning of the disc spaces at T10- T11, T11-T12, L1-L2 through L3-L4. T12-L1 The conus medullaris terminates at T12-L1. There is normal signal in the caudal spinal cord. Prominent distention of the bladder. Paravertebral soft tissues are unremarkable. The following disc levels are specifically discussed: T10-T11: Annular fissure and small central disc extrusion with disc material extending up to 5 mm cephalad to the level of the inferior endplate of T10. There is also retropulsion of the cephalad aspect of the posterior wall of the T11 vertebral body. Together these contribute to mild central canal stenosis. There is severe bilateral facet osteoarthritis. There is mild left neural foraminal stenosis. T11-T12: Small right paracentral disc protrusion. There is mild bilateral facet osteoarthritis. There is mild bilateral neural foraminal stenosis. There is mild central canal stenosis. T12-L1: Small central disc protrusion. There is mild/moderate bilateral facet joint osteoarthritis. There is no neural foraminal stenosis. There is minimal central canal stenosis. L1-L2: Small bilateral foraminal zone disc protrusions. There is hypertrophy of the ligamentum flavum. There is mild left and moderate right facet joint osteoarthritis. There is mild bilateral neural foraminal stenosis. There is minimal central canal stenosis at the level of the disc space. There is mild central canal stenosis more caudally resulting from the mild L2 retropulsion. L2-L3: The disc does not extend beyond the endplate margin. There is moderate central canal stenosis slightly caudal to the level of the disc space resulting from L3 retropulsion and hypertrophy of the ligamentum flavum. There is mild left and moderate right facet joint osteoarthritis. There is moderate left and moderate to severe right neural foraminal stenosis. L3-L4: Disc is mildly bulging. There is hypertrophy of the ligamentum flavum. There is mild right and mild to moderate left facet joint osteoarthritis. There is mild right and mild to moderate left neural foraminal stenosis. There is mild to moderate central canal stenosis. L4-L5: Annular fissure and broad-based disc extrusion with disc material extending up to 3 mm cephalad to the level of the inferior endplate of L4 but not extending beyond the posterior margin of the more posterior superior endplate of L5. There is hypertrophy of the ligamentum flavum. There is severe right and moderate left facet joint osteoarthritis. There is moderate left and mild to moderate right neural foraminal stenosis. There is severe central canal stenosis. L5-S1: Disc is mildly bulging. There is severe bilateral facet joint osteoarthritis. There is mild right neural foraminal stenosis. There is no central canal stenosis. IMPRESSION: 1. Mild lumbar spondylosis most notable for severe central canal stenosis at L4- L5 resulting primarily from ligamentum flavum hypertrophy and 4 mm anterolisthesis L4 on L5. 2. Multiple lumbar and lower thoracic burst fractures which appear relatively recent at L2 and L3, the latter contributing to additional moderate central canal stenosis at this level. Reviewed, dictated and finalized at location A. IMPRESSION: 1. Mild lumbar spondylosis most notable for severe central canal stenosis at L4 -L5 resulting primarily from ligamentum flavum hypertrophy and 4 mm anterolisth esis L4 on L5. 2. Multiple lumbar and lower thoracic burst fractures which appear relatively r ecent at L2 and L3, the latter contributing to additional moderate central brenden l stenosis at this level.
--- NOTE | ~2025-04-05 | CT_ITS ---
CT abd pelvis lumbar w con Clinical History: Fecal impaction . Comparison: CT lumbar spine one week prior CT abdomen and pelvis 01/31/2022 Technique: Axial images lung bases to symphysis pubis IV contrast information not listed in PACS Coronal, sagittal reformats CT images acquired with automatic exposure control for dose reduction DLP: 178 mGy-cm Findings: Lung bases: Clear. Visualized heart and pericardium: Unremarkable. Liver: Unremarkable. Gallbladder: Unremarkable. Spleen: Unremarkable. Pancreas: Unremarkable. Adrenal glands: Unremarkable. Kidneys: Right kidney- No hydronephrosis. No renal stones. Left kidney- No hydronephrosis. No renal stones. Distal esophagus/stomach: Apparent gastric antral wall thickening probably merely underdistention. Small bowel loops: Normal caliber and wall thickness. Colon: Large rectal stool ball, mucosal enhancement, presacral stranding and small fluid. Normal appendix probably identified. Large volume stool. Nodes: No enlarged nodes. Peritoneum: No ascites. No free air. Urinary bladder: Unremarkable. Uterus: Unremarkable. Adnexa: No masses. Bones: Severe L3 compression deformity and comminution as before. Slight further collapse of L2. Severe wedge deformity T11. Superior endplate height loss concavity L4. Soft tissues: Unremarkable. Aorta: No aneurysm or dissection. Atherosclerotic disease. IVC: Unremarkable. Main portal vein/SMV/splenic vein: Patent. IMPRESSION: 1. Large rectal stool ball with stercoral colitis. 2. Large volume stool consistent with constipation. 3. Slight compression fracture L2 new from one week prior. Reviewed, dictated and finalized at location R.
--- OUTSIDE RECORDS SUMMARY | 2025-04-05 16:19 | XMS_ITS | Clinical Summary ---
Author Organization [facility] Address [address] [place] [address] Care Team Providers Care Control Valve Mechanic Name Role Phone Unavailable Primary Care Provider [...]
--- OUTSIDE RECORDS SUMMARY | 2025-04-05 16:19 | XMS_ITS | Clinical Summary ---
Author Organization [facility] [employer] [facility] Address [address] [place] [address] Care Team Providers Care Geneticist Name Role Phone Fernando Ramírez MD Primary Care Provider [phone] Allergies No known active allergies Medications levothyroxine [...] Description 04/26/2025 1:15 PM CDT Office Visit [facility] Oncology and Hematology - [place] [address] [facility] [address] [place] [address] Kartik Huynh MD [address] [facility] [address] [place] [address] Health Maintenance Due Date Last Done Comments DTAP/TDAP/TD VACCINES (1 - Tdap) 12/23/1954 PNEUMOCOCCAL VACCINE 50+ YEARS (1 of 1 - PCV) 12/22/18 87 ZOSTER VACCINE (1 of 2) 1986 OSTEOPOROSIS SCREENING 2001 RSV VACCINE (60+ or ) (1 - 1-dose 75+ series) 12/23/2011 INFLUENZA VACCINE (#1) 2025 Insurance [facility] Address: [address] [address] Care Teams Geneticist Relationship Specialty Start Date End Date Fernando Ramírez MD [address] [place] [address] PCP - General Family Practice 04/23/23
--- OUTSIDE RECORDS SUMMARY | 2025-04-05 16:19 | XMS_ITS | Clinical Summary ---
Author Organization [facility] [employer] Address [address] [place] [address] Care Team Providers Care Import Coordinator Name Role Phone Sumeet Driscoll MD Primary Care Provider [phone] Allergies No known active allergies Medications levothyroxine [...] on file Legal Sex Female 1:08 AM RN APPEALS Gender Identity Not on file Sexual Orientation [...] MEDICARE O [employer] MEDICARE O Care Teams Import Coordinator Relationship Specialty Start Date End Date Sumeet Driscoll MD PCP - General Internal Medicine 11/16/20
[2025-04-05] MEDS: ACETAMINOPHEN 500 MG TABLET 1000 MG PO (16:45)
[2025-04-05] MEDS: traMADol HCL (*CRX) 50 MG TABLET PO (16:45)
[2025-04-05 16:52] LABS: Hematocrit 37.1 % (37.0-47.0); Hemoglobin 12.1 g/dL (12.0-15.0); Immature Granulocyte Percent A 0.7 % (0-0.5); Lymphocytes Absolute Auto 0.89 K/mm3 (0.9-3.2); Mean Corpuscular HGB Conc 32.6 g/dl (32-36); Mean Corpuscular Hemoglobin 31.6 pg (26-34); Mean Corpuscular Volume 96.9 fl (80-100); Nucleated Red Blood Cells Absolute Auto 0.000 K/mm3 (0.0-0.012); Nucleated Red Blood Cells Perc 0.0 % (0.0-0.2); Platelet Count Result 459 k/mm3 (150-375); Red Blood Count 3.83 M/mm3 (4.2-5.4); White Blood Count 17.5 K/mm3 (4.5-10.0)
[2025-04-05 17:04] LABS: Alanine Aminotransferase 20 U/L (6-35); Albumin Level 3.6 g/dL (3.5-5.1); Alkaline Phosphatase 110 U/L (38-126); Anion Gap 7 mmol/L (4-12); Aspartate Amino Transferase 31 U/L (14-36); Bilirubin,Total 0.7 mg/dL (0.2-1.3); Blood Urea Nitrogen 22 mg/dL (7-17); Calcium 7.9 mg/dL (8.4-10.2); Carbon Dioxide 29 mmol/L (22-30); Chloride 99 mmol/L (98-107); Estimated CRCL calculation 28 ml/min; Estimated Glomerular Filt Rate > 60; Glucose 102 mg/dL (65-110); Potassium 3.4 mmol/L (3.4-5.0); Sodium 135 mmol/L (137-145); Total Protein 6.3 g/dL (6.3-8.2)
[2025-04-05] MEDS: BISACODYL 10 MG SUPPOSITORY RECTAL (18:02)
[2025-04-05] MEDS: MIDAZOLAM HCL (*CRX) 2 MG/2 ML VIAL 1 MG IV PUSH (18:03)
--- NOTE | 2025-04-05 18:43 | ED_ITS ---
HPI - General Adult General Chief complaint: Back Pain/Injury <Saul Troy MD - Last Filed: 04/05/25 19:17> Stated complaint: back pain <Saul Troy MD - Last Filed: 04/05/25 19:17> Time Seen by Provider: 04/05/25 15:58 <Saul Troy MD - Last Filed: 04/05/25 19:17> History of Present Illness HPI narrative: This is an 89-year-old female with a L3 burst fracture presenting for multiple complaints. She is still complaining of right-sided radicular pain which is essentially unchanged. However she has now developed difficulty going to the bathroom, primarily constipation. She has been she has been taking opiate pain control for her fracture. She has also been trying multiple laxatives but they have not been working. She denies significant rectal pain when trying to have a bowel movement. She also notes that she is having difficulty urinating urinating that started today as well. She denies any weakness to her lower extremities. She denies any saddle anesthesia. No new trauma or cancers. No fevers. <Saul Troy MD - Last Filed: 04/05/25 19:17> Related Data Home medications: Home Medications ?Medication ?Instructions ?Recorded ?Confirmed ?Last Taken ?Type mecobalamin (vitamin B12) 500 mcg 500 mcg PO DAILY 10/0404/04/25 Unknown History chewable tablet <Saul Troy MD - Last Filed: 04/05/25 19:17> Allergies/adverse reactions: Allergies Allergy/AdvReac Type Severity Reaction Status Date / Time No Known Allergies Allergy Verified 04/04/25 09:24 <Saul Troy MD - Last Filed: 04/05/25 19:17> [facility] Past Medical History Medical History: Medical History COVID-19 Broken toe Thyroid disorder Allergies Hypothyroidism (acquired) Kyphoscoliosis Osteoporosis <Saul Troy MD - Last Filed: 04/05/25 19:17> Family History Family History: Family History Father Hypertension Family history of elevated blood lipids Family history of coronary artery disease, Onset Age: 89 Patient's father is Family history of dementia Family history of Alzheimer's disease Mother Hypertension Family history of elevated blood lipids Cerebrovascular accident Patient's mother is Family history of osteoporosis Family history of hearing loss Daughter Diabetes mellitus <Saul Troy MD - Last Filed: 04/05/25 19:17> Social History Social History: Social History Smoking status: Never smoker Alcohol intake: never Substance use: never Do You Feel Safe in your Home?: Yes Lack of Transportation: No Lack of Food: Never True Current Housing: I Have Housing Concerned About Future Housing: No Difficulty Paying Gas/Electric Bills: No Difficulty Paying for Meds: No Currently Unemployed: No Education: High School Diploma/GED Difficulty w/ Childcare or Family Care: No Living arrangements: with family Spiritual care concerns: No <Saul Troy MD - Last Filed: 04/05/25 19:17> Exam 2 Narrative: APPEARANCE: No apparent distress. Head: atraumatic. EYES: EOMI, NOSE: Atraumatic NECK: Trachea midline RESPIRATORY: No increased rate of breathing CTAB CARDIOVASCULAR: RRR, no peripheral edema ABDOMINAL: Non-distended, soft nontender MUSCULOSKELETAl: No obvious deformities straight leg negative bilaterally NEURO: Alert. Cranial nerves 2-12 grossly intact. Sensation light touch, motor function cerebellar function intact for 4 extremities. No saddle anesthesia. Indeterminate rectal tone. SKIN:: Warm, dry. Normal color PSYCHIATRIC: Normal affect <Saul Troy MD - Last Filed: 04/05/25 19:17> Course Course Emergency Course: Patient care endorsed to me by previous provider pending CT scan did admission to the hospitalist who already had discussions with previous ER physician. Patient does have what seems to be significant constipation on CT scan, lumbar fracture already evident and known. Does have evidence of stercoral colitis with elevated white count and inflammatory changes in the rectal vault. RT received manual disimpaction. Started on Rocephin and Flagyl blood cultures obtained and she was given fluid resuscitation. Admit orders placed after we discussed with the hospitalist regarding updated on care. Patient admitted to a telemetry monitored bed given the urinary retention and concern for lumbar fracture potentially causing this pathology in addition to the stercoral colitis. <Ricky Sylvester MD - Last Filed: 04/05/25 21:30> Vital Signs Vital signs: Vital Signs Temperature 36.2 C L 04/05/25 14:58 Pulse Rate 68 04/05/25 14:58 Respiratory Rate 16 04/05/25 14:58 Blood Pressure 173/84 H 04/05/25 14:58 Pulse Oximetry 97 04/05/25 14:58 Oxygen Delivery Room Air 04/05/25 14:58 Temperature 36.2 C L 04/05/25 14:58 Pulse Rate 82 04/05/25 19:01 Respiratory Rate 22 H 04/05/25 19:01 Blood Pressure 136/71 04/05/25 19:01 Pulse Oximetry 96 04/05/25 19:01 Oxygen Delivery Room Air 04/05/25 14:58 <Saul Troy MD - Last Filed: 04/05/25 19:17> Vital Signs Temperature 36.2 C L 04/05/25 14:58 Pulse Rate 68 04/05/25 14:58 Respiratory Rate 16 04/05/25 14:58 Blood Pressure 173/84 H 04/05/25 14:58 Pulse Oximetry 97 04/05/25 14:58 Oxygen Delivery Room Air 04/05/25 14:58 Temperature 36.2 C L 04/05/25 14:58 Pulse Rate 82 04/05/25 19:01 Respiratory Rate 22 H 04/05/25 19:01 Blood Pressure 136/71 04/05/25 19:01 Pulse Oximetry 96 04/05/25 19:01 Oxygen Delivery Room Air 04/05/25 14:58 <Ricky Sylvester MD - Last Filed: 04/05/25 21:30> Procedures Rectal Disimpaction Rectal Disimpaction #1: Rectal Disimpaction Date: 04/05/25 <Saul Troy MD - Last Filed: 04/05/25 19:17> Time out performed rectal disimpaction: Yes <Saul Troy MD - Last Filed: 04/05/25 19:17> Indication: fecal impaction <Saul Troy MD - Last Filed: 04/05/25 19:17> Procedural Sedation: No <Saul Troy MD - Last Filed: 04/05/25 19:17> Sedation/Analgesia: benzodiazepines (1 mg versed for anxiolysis) <Saul Troy MD - Last Filed: 04/05/25 19:17> Technique: manual disimpaction with gloved finger <Saul Troy MD - Last Filed: 04/05/25 19:17> Result: significant stool output (Jose stool was disimpacted until stool was soft. Suppository was inserted. ) <Saul Troy MD - Last Filed: 04/05/25 19:17> Patient Tolerated Procedure: well <Saul Troy MD - Last Filed: 04/05/25 19:17> Complications: none <Saul Troy MD - Last Filed: 04/05/25 19:17> Medical Decision Making MDM Narrative Medical decision making narrative: -Course: 89 year old female with an L3 burst fracture presenting for constipation and urinary retention. On digital rectal exam patient has hard feces in the rectal vault. She was given 1 mg of Versed and disimpacted. She still has the urge to urinate, however she is unable to void. Bladder scan revealed 600 cc in the patient's bladder. The patient was straight cathed. Patient does not have any other neurologic deficits to indicate spinal cord compression, and she has multiple reasons to have urinary retention including constipation, opiate use and/or significant pain. Review of previous CT imaging showed only 4 mm of retropulsion. Case was discussed with Dr. Larson from Neurosurgery and the patient will be admitted for an MRI of her L-spine. -DDX includes but is not limited to: Opiate induced constipation, urinary retention, spinal cord compression <Saul Troy MD - Last Filed: 04/05/25 19:17> Vital Signs Vital Signs: Vital Signs Temperature 36.2 C L 04/05/25 14:58 Pulse Rate 68 04/05/25 14:58 Respiratory Rate 16 04/05/25 14:58 Blood Pressure 173/84 H 04/05/25 14:58 Pulse Oximetry 97 04/05/25 14:58 Oxygen Delivery Room Air 04/05/25 14:58 Temperature 36.2 C L 04/05/25 14:58 Pulse Rate 82 04/05/25 19:01 Respiratory Rate 22 H 04/05/25 19:01 Blood Pressure 136/71 04/05/25 19:01 Pulse Oximetry 96 04/05/25 19:01 Oxygen Delivery Room Air 04/05/25 14:58 <Saul Troy MD - Last Filed: 04/05/25 19:17> Vital Signs Temperature 36.2 C L 04/05/25 14:58 Pulse Rate 68 04/05/25 14:58 Respiratory Rate 16 04/05/25 14:58 Blood Pressure 173/84 H 04/05/25 14:58 Pulse Oximetry 97 04/05/25 14:58 Oxygen Delivery Room Air 04/05/25 14:58 Temperature 36.2 C L 04/05/25 14:58 Pulse Rate 82 04/05/25 19:01 Respiratory Rate 22 H 04/05/25 19:01 Blood Pressure 136/71 04/05/25 19:01 Pulse Oximetry 96 04/05/25 19:01 Oxygen Delivery Room Air 04/05/25 14:58 <Ricky Sylvester MD - Last Filed: 04/05/25 21:30> Lab Data Result diagrams: 04/05/25 16:44 04/05/25 16:44 <Saul Troy MD - Last Filed: 04/05/25 19:17> Labs: Lab Results 04/05/25 04/05/25 Range/Units 16:44 19:05 WBC 17.5 H (4.5-10.0) K/mm3 RBC 3.83 L (4.2-5.4) M/mm3 Hgb 12.1 (12.0-15.0) g/dL Hct 37.1 (37.0-47.0) % MCV 96.9 (80-100) fl MCH 31.6 (26-34) pg MCHC 32.6 (32-36) g/dl RDW 15.3 H (11.5-14.5) % Plt Count 459 H (150-375) k/mm3 MPV 9.7 (7.4-10.4) fl Immature Gran % (Auto) 0.7 H (0-0.5) % Neut % (Auto) 88.2 H (45.5-73.1) % Lymph % (Auto) 5.1 L (18.3-44.2) % Nelson % (Auto) 5.7 (2.6-8.5) % Eos % (Auto) 0.2 (0-4.4) % Baso % (Auto) 0.1 L (0.2-1.2) % Lymph # (Auto) 0.89 L (0.9-3.2) K/mm3 Nelson # (Auto) 1.0 H (0.1-0.6) K/mm3 Eos # (Auto) 0.0 (0-0.3) K/mm3 Baso # (Auto) 0.0 (0.0-0.1) K/mm3 Abs Immat Gran (auto) 0.12 H (0.00-0.031) K/mm3 Absolute Neuts (auto) 15.4 H (1.3-6.7) K/mm3 Absolute Nucleated RBC 0.000 (0.0-0.012) K/mm3 Nucleated RBC % 0.0 (0.0-0.2) % Sodium 135 L (137-145) mmol/L Potassium 3.4 (3.4-5.0) mmol/L Chloride 99 (98-107) mmol/L Carbon Dioxide 29 (22-30) mmol/L Anion Gap 7 (4-12) mmol/L BUN 22 H (7-17) mg/dL Creatinine 0.87 (0.7-1.0) mg/dL Estim Creat Clear Calc 28 ml/min Estimated GFR > 60 (59 - ) Glucose 102 (65-110) mg/dL Calcium 7.9 L (8.4-10.2) mg/dL Total Bilirubin 0.7 (0.2-1.3) mg/dL AST 31 (14-36) U/L ALT 20 (6-35) U/L Alkaline Phosphatase 110 (38-126) U/L Total Protein 6.3 (6.3-8.2) g/dL Albumin 3.6 (3.5-5.1) g/dL Urine Color Yellow (Yellow) Urine Appearance Clear (Clear) Urine pH 5.5 (5.0-9.0) Ur Specific [place] 1.015 (1.001-1.035) Urine Protein Trace (Negative) mg/dL Urine Glucose (UA) Negative (Negative) mg/dL Urine Ketones 1+ H (Negative) mg/dL Ur Blood (Man) Negative (Negative) Urine Nitrate Negative (Negative) Urine Bilirubin Negative (Negative) Urine Urobilinogen 0.2 (<2.0) mg/dL Leukocyte Esterase Rfl Negative (Negative) NEDA/UL Urine RBC 3-5 H (0-2) /hpf Urine WBC 0-5 (0-3) /hpf Ur Squamous Epith Cells None seen (Few) /hpf Urine Bacteria None seen /hpf Urine Casts 0-2 <Saul Troy MD - Last Filed: 04/05/25 19:17> Lab Results 04/05/25 04/05/25 Range/Units 16:44 19:05 WBC 17.5 H (4.5-10.0) K/mm3 RBC 3.83 L (4.2-5.4) M/mm3 Hgb 12.1 (12.0-15.0) g/dL Hct 37.1 (37.0-47.0) % MCV 96.9 (80-100) fl MCH 31.6 (26-34) pg MCHC 32.6 (32-36) g/dl RDW 15.3 H (11.5-14.5) % Plt Count 459 H (150-375) k/mm3 MPV 9.7 (7.4-10.4) fl Immature Gran % (Auto) 0.7 H (0-0.5) % Neut % (Auto) 88.2 H (45.5-73.1) % Lymph % (Auto) 5.1 L (18.3-44.2) % Nelson % (Auto) 5.7 (2.6-8.5) % Eos % (Auto) 0.2 (0-4.4) % Baso % (Auto) 0.1 L (0.2-1.2) % Lymph # (Auto) 0.89 L (0.9-3.2) K/mm3 Nelson # (Auto) 1.0 H (0.1-0.6) K/mm3 Eos # (Auto) 0.0 (0-0.3) K/mm3 Baso # (Auto) 0.0 (0.0-0.1) K/mm3 Abs Immat Gran (auto) 0.12 H (0.00-0.031) K/mm3 Absolute Neuts (auto) 15.4 H (1.3-6.7) K/mm3 Absolute Nucleated RBC 0.000 (0.0-0.012) K/mm3 Nucleated RBC % 0.0 (0.0-0.2) % Sodium 135 L (137-145) mmol/L Potassium 3.4 (3.4-5.0) mmol/L Chloride 99 (98-107) mmol/L Carbon Dioxide 29 (22-30) mmol/L Anion Gap 7 (4-12) mmol/L BUN 22 H (7-17) mg/dL Creatinine 0.87 (0.7-1.0) mg/dL Estim Creat Clear Calc 28 ml/min Estimated GFR > 60 (59 - ) Glucose 102 (65-110) mg/dL Calcium 7.9 L (8.4-10.2) mg/dL Total Bilirubin 0.7 (0.2-1.3) mg/dL AST 31 (14-36) U/L ALT 20 (6-35) U/L Alkaline Phosphatase 110 (38-126) U/L Total Protein 6.3 (6.3-8.2) g/dL Albumin 3.6 (3.5-5.1) g/dL Urine Color Yellow (Yellow) Urine Appearance Clear (Clear) Urine pH 5.5 (5.0-9.0) Ur Specific [place] 1.015 (1.001-1.035) Urine Protein Trace (Negative) mg/dL Urine Glucose (UA) Negative (Negative) mg/dL Urine Ketones 1+ H (Negative) mg/dL Ur Blood (Man) Negative (Negative) Urine Nitrate Negative (Negative) Urine Bilirubin Negative (Negative) Urine Urobilinogen 0.2 (<2.0) mg/dL Leukocyte Esterase Rfl Negative (Negative) NEDA/UL Urine RBC 3-5 H (0-2) /hpf Urine WBC 0-5 (0-3) /hpf Ur Squamous Epith Cells None seen (Few) /hpf Urine Bacteria None seen /hpf Urine Casts 0-2 <Ricky Sylvester MD - Last Filed: 04/05/25 21:30> Discharge Plan Discharge Clinical Impression: Fecal impaction, Acute urinary retention, Burst fracture of lumbar vertebra, Stercoral colitis <Saul Troy MD - Last Filed: 04/05/25 19:17> Patient Disposition: Still a Patient <Saul Troy MD - Last Filed: 04/05/25 19:17> Condition: Stable <Saul Troy MD - Last Filed: 04/05/25 19:17> Patient Language: Slovak <Saul Troy MD - Last Filed: 04/05/25 19:17> Prescriptions: No Action mecobalamin (vitamin B12) 500 mcg tablet,chewable 500 mcg PO DAILY amlodipine 2.5 mg tablet 2.5 mg PO DAILY Qty: 90 1RF cetirizine [Zyrtec] 10 mg tablet 10 mg PO DAILY Qty: 30 0RF albuterol sulfate [Ventolin HFA] 90 mcg/actuation HFA aerosol inhaler 1 inh inhalation Q4H PRN (Reason: shortness of breath or wheezing) Qty: 8.5 0RF lidocaine 5 % adhesive patch,medicated 2 patch topical DAILY Qty: 30 0RF Rx Instructions: leave on most painful area for up to 12 hrs hydrocodone-acetaminophen 5-325 mg tablet 1 tablet PO Q8H PRN (Reason: pain) Qty: 20 0RF ipratropium bromide 42 mcg (0.06 %) spray,non-aerosol 2 spray intranasal TID Qty: 15 5RF Rx Instructions: administer into each nostril tramadol 50 mg tablet 50 mg PO Q8H PRN (Reason: pain) Qty: 20 0RF levothyroxine [Synthroid] 112 mcg tablet 112 mcg PO DAILY Qty: 60 0RF <Saul Troy MD - Last Filed: 04/05/25 19:17> Follow-up/Referrals: UNKNOWN,DOCTOR [Primary Care Provider] <Saul Troy MD - Last Filed: 04/05/25 19:17> Time of Disposition: 21:30 <Saul Troy MD - Last Filed: 04/05/25 19:17> 21:30 <Ricky Sylvester MD - Last Filed: 04/05/25 21:30>
[2025-04-05] MEDS: METHYLNALTREXONE 12 MG/0.6 ML VIAL SUB-Q (18:50)
--- NOTE | 2025-04-05 19:05 | PC.NURSE ---
EDP Dr. Troy notified of bladder scan results of >618mL. EDP did not want a hearn catheter and gave a verbal order for a straight cath
[2025-04-05 19:32] LABS: Add Urine Microscopic? YES; Appearance Urine Clear (Clear); Glucose Urine UA Negative (Negative); Leukocyte Esterase Ur Negative LEU/UL (Negative); Nitrate Urine Negative (Negative); Non Pathogenic Casts 0-2; Specific Grav Ur 1.015 (1.001-1.035)
[2025-04-05] MEDS: cefTRIAXone 1 GM in SODIUM CHLORIDE 0.9% IV 50 ML 100 ML IVPB (21:42)
[2025-04-05] MEDS: SODIUM CHLORIDE 0.9% IV 1,000 ML 999 ML IV CONT (21:42)
[2025-04-05] MEDS: metroNIDAZOLE 500 MG/ISO 100ML 500 MG/100 ML BAG 100 MG IVPB (22:37)
[2025-04-05] MEDS: SODIUM CHLORIDE 0.9% IV 1,000 ML 75 ML IV CONT (23:51)
[2025-04-06] VITALS (8 sets, daily range): BP systolic 130–140; BP diastolic 62–75; PULSE 68–88; RESP 16–18; TEMP 36.7–37.2; O2SAT 96–100; BMI 17.2
--- NOTE | 2025-04-06 | ADMGEN ---
This patient, Day Payan, was admitted to Medical Room 261-01. Patient/family oriented to hospital policies and general routines including ID bracelet, bed and alarms, visiting hours, pain management, procedures, bathroom and other care routines, personal items, smoking policy, room service/diet, and visiting hours. Information on how to activate the Rapid Response Team has been discussed. Patient/Family are encouraged to report perceived risks to care and to ask questions if they do not understand what they are told or what they should do.
--- NOTE | 2025-04-06 01:00 | PM.IMHP ---
H&P: HPI History of Present Illness Date/Time: 04/06/25 01:00 Chief Complaint: Right leg pain Narrative: 89-year-old female with history of hypertension, hypothyroidism, with an L3 burst fracture currently being managed conservatively with [place] and tramadol presents to [facility] ER 04/05/2025 complaining of persistent pain in her lower back, radiating down her buttock and posterior thigh. Also reports she has not had a bowel movement in a week despite taking multiple laxatives. She has had trouble urinating. Denies incontinence, numbness, weakness. WBC [id number]. Lum[address] demonstrating subacute L3 burst fracture stable from 03/08/2025, severe spondylosis at L4-L5. Abdomen pelvis CT with contrast demonstrates large rectal stool ball with steroid colo colitis, large volume stool consistent with constipation and slight compression fracture L2 new from 1 week prior. She was given Versed and manual disimpaction performed in the ER. After evaluating the patient again she had no symptoms to report. Straight cath performed in the ER as well. She was given ceftriaxone and Flagyl. Review of Systems Review of Systems: All systems reviewed & are unremarkable except as noted in HPI and below (Subjective) [facility] Past Medical History Medical History COVID-19 Broken toe Thyroid disorder Allergies Hypothyroidism (acquired) Kyphoscoliosis Osteoporosis Family History Family History Father Hypertension Family history of elevated blood lipids Family history of coronary artery disease, Onset Age: 88 Patient's father is Family history of dementia Family history of Alzheimer's disease Mother Hypertension Family history of elevated blood lipids Cerebrovascular accident Patient's mother is Family history of osteoporosis Family history of hearing loss Daughter Diabetes mellitus Social History Social History Smoking status: Never smoker Alcohol intake: never Substance use: never Do You Feel Safe in your Home?: Yes Lack of Transportation: No Lack of Food: Never True Current Housing: I Have Housing Concerned About Future Housing: No Difficulty Paying Gas/Electric Bills: No Difficulty Paying for Meds: No Currently Unemployed: No Education: High School Diploma/GED Difficulty w/ Childcare or Family Care: No Living arrangements: with family Spiritual care concerns: No Meds Home Medications and Allergies Home Medications ?Medication ?Instructions ?Recorded ?Confirmed ?Type albuterol sulfate 90 mcg/actuation 1 inh inhalation Q4H PRN shortness 08/18/24 04/05/25 Rx aerosol inhaler (Ventolin HFA) of breath or wheezing #8.5 grams ipratropium bromide 42 mcg (0.06 2 spray intranasal TID #15 mL 12/24/24 04/05/25 Rx %) nasal spray amlodipine 2.5 mg tablet 2.5 mg PO DAILY #90 tabs 03/08/25 04/05/25 Rx cetirizine 10 mg tablet (Zyrtec) 10 mg PO DAILY #30 tabs 03/08/25 04/05/25 Rx Synthroid 112 mcg tablet 112 mcg PO DAILY #60 tabs 03/24/25 04/05/25 Rx (levothyroxine) tramadol 50 mg tablet 50 mg PO Q8H PRN pain #20 tabs 03/24/25 04/05/25 Rx hydrocodone 5 mg-acetaminophen 325 1 tablet PO Q8H PRN pain #20 tabs 03/28/25 04/05/25 Rx mg tablet Allergies Allergy/AdvReac Type Severity Reaction Status Date / Time No Known Allergies Allergy Verified 04/05/25 23:59 Vital Signs Vital Signs - 24 hr 04/05/25 14:58 04/05/25 16:51 04/05/25 18:15 Temperature 97.2 F L Pulse Rate 68 84 77 Respiratory Rate 16 16 18 Blood Pressure 173/84 H 163/83 H 147/75 H Pulse Oximetry 97 99 97 Oxygen Delivery Room Air 04/05/25 18:17 04/05/25 18:31 04/05/25 19:01 Temperature Pulse Rate 76 80 82 Respiratory Rate 16 24 H 22 H Blood Pressure 147/75 H 124/72 136/71 Pulse Oximetry 97 96 Oxygen Delivery 04/05/25 19:02 04/05/25 19:15 04/05/25 19:30 Temperature Pulse Rate 78 74 71 Respiratory Rate 15 19 11 L Blood Pressure 147/74 H Pulse Oximetry 96 100 97 Oxygen Delivery 04/05/25 19:31 04/05/25 19:45 04/05/25 20:00 Temperature Pulse Rate 75 79 69 Respiratory Rate 23 H 19 13 Blood Pressure 150/73 H Pulse Oximetry 98 96 98 Oxygen Delivery 04/05/25 20:01 04/05/25 20:21 04/05/25 20:22 Temperature Pulse Rate 69 77 78 Respiratory Rate 22 H 14 Blood Pressure 158/77 H Pulse Oximetry 96 99 Oxygen Delivery 04/05/25 20:30 04/05/25 20:31 04/05/25 20:45 Temperature Pulse Rate 72 71 72 Respiratory Rate 17 20 20 Blood Pressure 165/68 H Pulse Oximetry 98 97 97 Oxygen Delivery 04/05/25 21:00 04/05/25 21:01 04/05/25 21:15 Temperature Pulse Rate 69 69 73 Respiratory Rate 14 17 16 Blood Pressure 142/67 H Pulse Oximetry 97 98 90 Oxygen Delivery 04/05/25 21:30 04/05/25 21:31 04/05/25 21:45 Temperature Pulse Rate 70 73 69 Respiratory Rate 11 L 22 H 12 Blood Pressure 158/72 H Pulse Oximetry 97 95 79 L Oxygen Delivery 04/05/25 22:00 04/05/25 22:01 04/05/25 22:15 Temperature Pulse Rate 71 71 77 Respiratory Rate 13 11 L 17 Blood Pressure 161/69 H Pulse Oximetry 99 98 100 Oxygen Delivery 04/05/25 22:30 04/05/25 22:31 04/05/25 22:45 Temperature Pulse Rate 71 73 71 Respiratory Rate 13 18 15 Blood Pressure 155/68 H 155/69 H Pulse Oximetry 97 98 99 Oxygen Delivery 04/05/25 22:57 Temperature Pulse Rate 71 Respiratory Rate 15 Blood Pressure 155/69 H Pulse Oximetry 99 Oxygen Delivery Exam Const: General: comfortable and no acute distress HENMT: Mouth: Yes moist mucous membranes Eyes: Pupils: Equal, round and reactive pupils present Neck: Neck: supple Resp: Effort & Inspection: normal respiratory effort Auscultation: clear to auscultation bilaterally Cardio: Rate: regular rate Rhythm: regular rhythm GI: Inspection: non-distended GI Palp: Yes Soft to palpation and No Tenderness to palpation present (GI) : General: Yes bladder normal to palpation Neuro: Motor exam (neuro): 5/5 motor strength present throughout Sensory Exam: normal sensation Extrem: General: no edema H&P: Results Labs Labs: Short CBC 04/05/25 Range/Units 16:44 WBC 17.5 H (4.5-10.0) K/mm3 Hgb 12.1 (12.0-15.0) g/dL Hct 37.1 (37.0-47.0) % Plt Count 459 H (150-375) k/mm3 BMP 04/05/25 16:44 Sodium 135 L Potassium 3.4 Chloride 99 Carbon Dioxide 29 BUN 22 H Creatinine 0.87 Glucose 102 Calcium 7.9 L Liver Function 04/05/25 Range/Units 16:44 Total Bilirubin 0.7 (0.2-1.3) mg/dL AST 31 (14-36) U/L ALT 20 (6-35) U/L Alkaline Phosphatase 110 (38-126) U/L Albumin 3.6 (3.5-5.1) g/dL Urine 04/05/25 Range/Units 19:05 Urine Color Yellow (Yellow) Urine Appearance Clear (Clear) Urine pH 5.5 (5.0-9.0) Ur Specific [place] 1.015 (1.001-1.035) Urine Protein Trace (Negative) mg/dL Urine Glucose (UA) Negative (Negative) mg/dL Assessment and Plan Assessment and plan (1) Essential hypertension: Code(s): I10 - Essential (primary) hypertension Status: Acute (2) Fecal impaction: Code(s): K56.41 - Fecal impaction Status: Acute (3) Compression fracture of lumbar spine, non-traumatic: Code(s): M48.56XA - Collapsed vertebra, not elsewhere classified, lumbar region, initial encounter for fracture Status: Acute (4) Burst fracture of lumbar vertebra: Code(s): S32.001A - Stable burst fracture of unspecified lumbar vertebra, initial encounter for closed fracture Status: Acute Plan 89-year-old female with history of hypertension, hypothyroidism, with an L3 burst fracture currently being managed conservatively with [place] and tramadol presents to [facility] ER 04/05/2025 complaining of persistent pain in her lower back, radiating down her buttock and posterior thigh. Also reports she has not had a bowel movement in a week despite taking multiple laxatives. She has had trouble urinating. Denies incontinence, numbness, weakness. WBC [address]. Lum[address] demonstrating subacute L3 burst fracture stable from 03/08/2025, severe spondylosis at L4-L5. Abdomen pelvis CT with contrast demonstrates large rectal stool ball with steroid colo colitis, large volume stool consistent with constipation and slight compression fracture L2 new from 1 week prior. Neurosurgery consulted from the ER. Recommended admission for MRI. She was given Versed and manual disimpaction performed in the ER. After evaluating the patient again she had no symptoms to report. Straight cath performed in the ER as well. She was given ceftriaxone and Flagyl. ----- Will avoid opioids for now, if needing to restart she will need to be on a aggressive bowel regimen. Continue bisacodyl suppository and MiraLax daily. Neurosurgical consultation. Bed rest. Tylenol p.r.n., ibuprofen p.r.n., lidocaine patch. Trend WBC, likely due to stercoral colitis. Monitor urine output, bladder scan p.r.n.. Pending MRI. Clear liquid diet, advanced as tolerated, normal saline at 75 cc/hour. Blood pressure slightly elevated. Resume 4 H YOUTH DEVELOPMENT SPECIALIST amlodipine 2.5 mg p.o. q.day, blood pressure monitoring per unit protocol. ----- Full code. Bed rest. SCDs. Hospitalist [facility] Advance Care Plan I have confirmed that the patient's Advanced Care Plan is present, code status is documented, or surrogate decision maker is listed in patient medical record.: Yes Medication Reconciliation I have utilized all available resources to obtain, update and review the patients current medications (includes all prescriptions, OTC, herbals, cannabis, and nutritional supplements).: Yes
[2025-04-06 05:04] LABS: Hematocrit 33.1 % (37.0-47.0); Hemoglobin 10.5 g/dL (12.0-15.0); Immature Granulocyte Percent A 0.8 % (0-0.5); Lymphocytes Absolute Auto 0.92 K/mm3 (0.9-3.2); Mean Corpuscular HGB Conc 31.7 g/dl (32-36); Mean Corpuscular Hemoglobin 31.1 pg (26-34); Mean Corpuscular Volume 97.9 fl (80-100); Nucleated Red Blood Cells Absolute Auto 0.000 K/mm3 (0.0-0.012); Nucleated Red Blood Cells Perc 0.0 % (0.0-0.2); Platelet Count Result 415 k/mm3 (150-375); Red Blood Count 3.38 M/mm3 (4.2-5.4); White Blood Count 16.0 K/mm3 (4.5-10.0)
[2025-04-06 05:34] LABS: Anion Gap 7 mmol/L (4-12); Blood Urea Nitrogen 17 mg/dL (7-17); Calcium 6.6 mg/dL (8.4-10.2); Carbon Dioxide 22 mmol/L (22-30); Chloride 103 mmol/L (98-107); Estimated CRCL calculation 33 ml/min; Estimated Glomerular Filt Rate > 60; Glucose 80 mg/dL (65-110); Magnesium 2.5 mg/dL (1.6-2.3); Potassium 3.3 mmol/L (3.4-5.0); Sodium 132 mmol/L (137-145)
[2025-04-06] MEDS: LEVOTHYROXINE SODIUM 112 MCG TABLET PO (05:51)
--- OUTSIDE RECORDS SUMMARY | 2025-04-06 09:18 | XMS_ITS | Clinical Summary ---
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
--- OUTSIDE RECORDS SUMMARY | 2025-04-06 09:18 | XMS_ITS | Clinical Summary ---
Author Organization [facility] [employer] [facility] Address [address] [place] [address] Care Team Providers Care Magneto Specialist Name Role Phone Fernando Ramírez MD Primary Care Provider [phone] Allergies No known active allergies Medications levothyroxine [...] Description 04/26/2025 1:15 PM CDT Office Visit [facility] - [place] [address] [facility] [address] [place] [address] Kartik Huynh MD [address] [place] [address] Health Maintenance Due Date Last Done Comments DTAP/TDAP/TD VACCINES (1 - Tdap) 12/23/1954 PNEUMOCOCCAL VACCINE 50+ YEARS (1 of 1 - PCV) 12/22/18 87 ZOSTER VACCINE (1 of 2) 1986 OSTEOPOROSIS SCREENING 2001 RSV VACCINE (60+ or ) (1 - 1-dose 75+ series) 12/23/2011 INFLUENZA VACCINE (#1) 2025 Insurance [facility] Care Teams Magneto Specialist Relationship Specialty Start Date End Date Fernando Ramírez MD [address] [place] [address] PCP - General Family Practice 04/23/23
--- OUTSIDE RECORDS SUMMARY | 2025-04-06 09:18 | XMS_ITS | Clinical Summary ---
Author Organization [facility] Address [address] [place] [address] Care Team Providers Care Stallion Keeper Name Role Phone Unavailable Primary Care Provider [...]
[2025-04-06] MEDS: IBUPROFEN 400 MG TABLET PO (09:42)
--- NOTE | 2025-04-06 12:08 | P.CONNS_ITS ---
Assessment and Plan Assessment and plan (1) Burst fracture of lumbar vertebra: Code(s): S32.001A - Stable burst fracture of unspecified lumbar vertebra, initial encounter for closed fracture Status: Acute Plan Ms. Payan is an 81-year-old female with history of osteoporosis who sustained an L3 burst fracture at the end of January for which she was admitted to wear a brace, although she has been doing his brace is very uncomfortable for her. She into the ER last night developed the to have a bowel movement and also reported some difficulty with urination. She also reports pain radiating into the right hip and anterior thigh which has been present the last month or so. She is neurologically intact on my exam. I reviewed her CT lumbar spine that does show a burst fracture L3 with about 75% loss of height and small amount of retropulsion. This appears stable compared to her CT scan from March 28. I have a low index of suspicion that her urinary issues are related to her spine fracture, but she has an MRI ordered to further evaluate her spine. I did contact [facility] medical equipment to fit her for a LSO brace hopefully this will be more comfortable. I will follow up once the MRI is complete. In the interim, she may work with physical therapy and can be out of bed. 1 could also consider starting steroids to see if this is helpful for her leg pain. Consult date: 04/06/25 Time Seen: 09:30 HPI: Day Payan is a 89 year old female with history of osteoporosis who states that she sustained a fracture of her lower back at the end of January after bending over. She denies having any fall at that time. She had been told to wear a brace that she already has at home from previous fractures to her back. She presented to the emergency room on March 28 the back pain at which time she was encouraged to wear her brace and was discharged home with medication. She returned yesterday because of difficulty using the restroom over the last several days and inability to have a bowel movement. She also reports increasing pain into the right hip and thigh when putting leg. She has not been wearing her brace because it is very uncomfortable for her. She denies any left-sided symptoms. She notably was disimpacted in the emergency room. She also reported some difficulty with urination. There was a bladder scan in the emergency room with 600 cc, but it is unclear whether this is a postvoid residual. Review of Systems 2 Review of Systems: All systems reviewed & are unremarkable except as noted in HPI and below PMFSH Past Medical History Medical History COVID-19 Broken toe Thyroid disorder Allergies Hypothyroidism (acquired) Kyphoscoliosis Osteoporosis Family History Family History Father Hypertension Family history of elevated blood lipids Family history of coronary artery disease, Onset Age: 88 Patient's father is Family history of dementia Family history of Alzheimer's disease Mother Hypertension Family history of elevated blood lipids Cerebrovascular accident Patient's mother is Family history of osteoporosis Family history of hearing loss Daughter Diabetes mellitus Social History Social History Smoking status: Never smoker Alcohol intake: never Substance use: never Do You Feel Safe in your Home?: Yes Lack of Transportation: No Lack of Food: Never True Current Housing: I Have Housing Concerned About Future Housing: No Difficulty Paying Gas/Electric Bills: No Difficulty Paying for Meds: No Currently Unemployed: No Education: High School Diploma/GED Difficulty w/ Childcare or Family Care: No Living arrangements: with family Spiritual care concerns: No Meds Home Medications and Allergies Home Medications ?Medication ?Instructions ?Recorded ?Confirmed ?Type albuterol sulfate 90 mcg/actuation 1 inh inhalation Q4 H PRN shortness 08/18/24 04/05/25 Rx aerosol inhaler (Ventolin HFA) of breath or wheezing # 8.5 grams ipratropium bromide 42 mcg (0.06 2 spray intranasal TI D #15 mL 12/24/24 04/05/25 Rx %) nasal spray amlodipine 2.5 mg tablet 2.5 mg PO DAILY #90 tabs 04/05/25 Rx cetirizine 10 mg tablet (Zyrtec) 10 mg PO DAILY #30 ta bs 03/08/25 04/05/25 Rx Synthroid 112 mcg tablet 112 mcg PO DAILY #60 tabs 04/05/25 Rx (levothyroxine) tramadol 50 mg tablet 50 mg PO Q8H PRN pain #20 ta bs 03/24/25 04/05/25 Rx hydrocodone 5 mg-acetaminophen 325 1 tablet PO Q8H PRN pain #20 tabs 03/28/25 04/05/25 Rx mg tablet Allergies Allergy/AdvReac Type Severity Reaction Status Date / Time No Known Allergies Allergy Verified 04/05/25 23:59 Vital Signs Vital Signs - 24 hr 04/05/25 14:58 04/05/25 16:51 04/05/25 18:15 Temperature 97.2 F L Pulse Rate 68 84 77 Respiratory Rate 16 16 18 Blood Pressure 173/84 H 163/83 H 147/75 H Pulse Oximetry 97 99 97 Oxygen Delivery Room Air 04/05/25 18:17 04/05/25 18:31 04/05/25 19:01 Temperature Pulse Rate 76 80 82 Respiratory Rate 16 24 H 22 H Blood Pressure 147/75 H 124/72 136/71 Pulse Oximetry 97 96 Oxygen Delivery 04/05/25 19:02 04/05/25 19:15 04/05/25 19:30 Temperature Pulse Rate 78 74 71 Respiratory Rate 15 19 11 L Blood Pressure 147/74 H Pulse Oximetry 96 100 97 Oxygen Delivery 04/05/25 19:31 04/05/25 19:45 04/05/25 20:00 Temperature Pulse Rate 75 79 69 Respiratory Rate 23 H 19 13 Blood Pressure 150/73 H Pulse Oximetry 98 96 98 Oxygen Delivery 04/05/25 20:01 04/05/25 20:21 04/05/25 20:22 Temperature Pulse Rate 69 77 78 Respiratory Rate 22 H 14 Blood Pressure 158/77 H Pulse Oximetry 96 99 Oxygen Delivery 04/05/25 20:30 04/05/25 20:31 04/05/25 20:45 Temperature Pulse Rate 72 71 72 Respiratory Rate 17 20 20 Blood Pressure 165/68 H Pulse Oximetry 98 97 97 Oxygen Delivery 04/05/25 21:00 04/05/25 21:01 04/05/25 21:15 Temperature Pulse Rate 69 69 73 Respiratory Rate 14 17 16 Blood Pressure 142/67 H Pulse Oximetry 97 98 90 Oxygen Delivery 04/05/25 21:30 04/05/25 21:31 04/05/25 21:45 Temperature Pulse Rate 70 73 69 Respiratory Rate 11 L 22 H 12 Blood Pressure 158/72 H Pulse Oximetry 97 95 79 L Oxygen Delivery 04/05/25 22:00 04/05/25 22:01 04/05/25 22:15 Temperature Pulse Rate 71 71 77 Respiratory Rate 13 11 L 17 Blood Pressure 161/69 H Pulse Oximetry 99 98 100 Oxygen Delivery 04/05/25 22:30 04/05/25 22:31 04/05/25 22:45 Temperature Pulse Rate 71 73 71 Respiratory Rate 13 18 15 Blood Pressure 155/68 H 155/69 H Pulse Oximetry 97 98 99 Oxygen Delivery 04/05/25 22:57 04/05/25 23:30 04/06/25 00:05 Temperature 97.7 F Pulse Rate 71 60 73 Respiratory Rate 15 16 Blood Pressure 155/69 H 170/83 H Pulse Oximetry 99 99 Oxygen Delivery 04/06/25 04:00 04/06/25 06:00 04/06/25 08:00 Temperature 98.3 F Pulse Rate 68 79 80 Respiratory Rate 16 Blood Pressure 140/66 Pulse Oximetry 100 Oxygen Delivery 04/06/25 09:40 Temperature Pulse Rate Respiratory Rate Blood Pressure Pulse Oximetry Oxygen Delivery Room Air Exam 2 Narrative: AOx4 Full strength in lower extremities Sensation intact to light touch Negative straight leg raise, FAIR, NINI on right Results Labs 04/06/25 04:47 04/06/25 04:47 Labs: Short CBC 04/05/25 04/06/25 Range/Units 16:44 04:47 WBC 17.5 H 16.0 H (4.5-10.0) K/mm3 Hgb 12.1 10.5 L (12.0-15.0) g/dL Hct 37.1 33.1 L (37.0-47.0) % Plt Count 459 H 415 H (150-375) k/mm3 BMP 04/05/25 04/06/25 16:44 04:47 Sodium 135 L 132 L Potassium 3.4 3.3 L Chloride 99 103 Carbon Dioxide 29 22 BUN 22 H 17 Creatinine 0.87 0.72 Glucose 102 80 Calcium 7.9 L 6.6 L Liver Function 04/05/25 Range/Units 16:44 Total Bilirubin 0.7 (0.2-1.3) mg/dL AST 31 (14-36) U/L ALT 20 (6-35) U/L Alkaline Phosphatase 110 (38-126) U/L Albumin 3.6 (3.5-5.1) g/dL Urine 04/05/25 Range/Units 19:05 Urine Color Yellow (Yellow) Urine Appearance Clear (Clear) Urine pH 5.5 (5.0-9.0) Ur Specific [place] 1.015 (1.001-1.035) Urine Protein Trace (Negative) mg/dL Urine Glucose (UA) Negative (Negative) mg/dL Imaging My impression: I personally reviewed the CT scan which shows evidence of a stable L3 burst fracture with 75% loss of height and small amount of retropulsion. This appears similar to a CT scan performed on March 28. There is evidence of multiple other compression deformities
--- NOTE | 2025-04-06 14:26 | P.PNCROSS_ITS ---
Event Note Event Note Event Note: Patient is an 89-year-old female who is admitted for continued moderate to sev ere back pain, fall, generalized weakness, and abdominal pain with poor appetite. Patient had an assessed by previous provider same day. I follow-up with patient for follow-up assessment she still have reports moderate back pain and concern for her incontinence bowel and stool however she was aware when she had to go. Patient had a large stool burden which was disimpacted in the ED and was CT abdomen showed some evidence of colitis transitioned to oral Augmentin. Patient's bowel regimen was continued with the addition senna at night if continues to have constipation will need to add lactulose. Patient with L3 burst fracture which was stable from previous imaging neurosurgery has been consulted for any further recommendations MRI is pending for further evaluation. Patient reported pain travels down her right lower extremity and is severely compromised her ability to do ADLs at her home. Vitals stable, otherwise unremarkable except for leukocytosis of 16. Will add Flexeril for possible muscle spasms see if patient has any relief did offer her lidocaine patches at which time she has refused says she does not like them, patient also states she has been unable to wear her TSLO brace new braces been ordered for fitting. Will order PT/OT patient may require rehab at discharge.
[2025-04-06] MEDS: POTASSIUM CHLORIDE 20 MEQ PACKET (FOR LIQUID) 40 MEQ PO (15:01)
[2025-04-06] MEDS: SODIUM CHLORIDE 0.9% IV 1,000 ML 75 ML IV CONT (15:01)
[2025-04-06] MEDS: KETOROLAC 15 MG/ML VIAL (*BKC) IV PUSH (15:07)
[2025-04-06] MEDS: SENNA/DOCUSATE SODIUM TABLET 1 TAB PO (22:43)
[2025-04-06] MEDS: CYCLOBENZAPRINE HCL 10 MG TABLET PO (22:49)
[2025-04-07] MEDS: CALCIUM CARBONATE (TUMS) 500 MG (200 MG ELEMENTAL) PO (02:32)
[2025-04-07] MEDS: SODIUM CHLORIDE 0.9% IV 1,000 ML 75 ML IV CONT ×2 (04:22→21:42)
[2025-04-07 05:34] LABS: Hematocrit 32.6 % (37.0-47.0); Hemoglobin 10.8 g/dL (12.0-15.0); Mean Corpuscular HGB Conc 33.1 g/dl (32-36); Mean Corpuscular Hemoglobin 31.6 pg (26-34); Mean Corpuscular Volume 95.3 fl (80-100); Platelet Count Result 438 k/mm3 (150-375); Red Blood Count 3.42 M/mm3 (4.2-5.4); White Blood Count 10.8 K/mm3 (4.5-10.0)
[2025-04-07 05:59] VITALS: BP 141/78; PULSE 94; RESP 18; TEMP 36.5; O2SAT 98
[2025-04-07 05:59] LABS: Alanine Aminotransferase 16 U/L (6-35); Albumin Level 2.7 g/dL (3.5-5.1); Alkaline Phosphatase 97 U/L (38-126); Anion Gap 4 mmol/L (4-12); Aspartate Amino Transferase 37 U/L (14-36); Bilirubin,Total 0.5 mg/dL (0.2-1.3); Blood Urea Nitrogen 12 mg/dL (7-17); Calcium 6.4 mg/dL (8.4-10.2); Carbon Dioxide 21 mmol/L (22-30); Chloride 104 mmol/L (98-107); Estimated CRCL calculation 36 ml/min; Estimated Glomerular Filt Rate > 60; Glucose 120 mg/dL (65-110); Potassium 3.5 mmol/L (3.4-5.0); Sodium 129 mmol/L (137-145); Total Protein 5.2 g/dL (6.3-8.2)
[2025-04-07] MEDS: LEVOTHYROXINE SODIUM 112 MCG TABLET PO (06:37)
[2025-04-07] MEDS: ONDANSETRON INJ 4 MG/2 ML VIAL IV PUSH (10:10)
[2025-04-07 14:00] VITALS: BP 126/71; PULSE 97; RESP 16; TEMP 36.5; O2SAT 96
--- NOTE | 2025-04-07 14:20 | P.PNIM_ITS ---
Progress Note: A&P Assessment and Plan (1) Compression fracture of lumbar spine, non-traumatic: Code(s): M48.56XA - Collapsed vertebra, not elsewhere classified, lumbar region, initial encounter for fracture Status: Acute Assessment and Plan: patient with follow-up lumbar spine CT showing subacute L3 burst fracture remained stable from previous on 03/08/2025. CT also showing severe spondylosis of the L4-L5. patient states she has had no relief from pain but has not been wearing her TSLO brace. Patient states she has severely unsteady gait and inability to care for self or do her ADLs. patient also refusing any lidocaine patches * neurosurgery consulted * I reviewed MRI * d/C narcotics doing well with flexeril and the 1 time dose of Toradol would recommend a NSAID at D/C * did add Flexeril p.r.n. for any muscle spasms also added 1 time dose Toradol * and new TSLO brace with fitting was done inpatient * PT/OT for evaluation * F/U outpatient with ortho/spine in little neck after discharge for continued pain management * Likely need rehab post discharge (2) Spondylosis: Code(s): M47.9 - Spondylosis, unspecified Status: Acute Assessment and Plan: see above could be a contributing fracture neurosurgery following appreciate any further recommendations on pain management (3) Fecal impaction: Code(s): K56.41 - Fecal impaction Status: Acute Assessment and Plan: patient in the emergency room due to constipation and abdominal pain secondary to recent acute L3 burst fracture has been on narcotics including tramadol and Craig. CT abdomen showing large stool burden was disimpacted in the emergency department * clear liquid diet and advance as tolerated * continue bowel regimen with MiraLax, senna Dulcolax * reported some diarrhea today with C diff just ruled out and discontinue some softner/laxative (4) Essential hypertension: Code(s): I10 - Essential (primary) hypertension Status: Acute Assessment and Plan: * resume patient's amlodipine * monitor BP per unit protocol (5) Hypothyroidism (acquired): Code(s): E03.9 - Hypothyroidism, unspecified Status: Acute Assessment and Plan: * continued levothyroxine Plan Code status: DNR DVT prophylaxis: SCD Stress ulcer prophylaxis: PT/OT notes: PT/OT evaluation Disposition: patient continues admission MRI completed today appreciate neuro surgeries recommendations on pain management the patient is doing better with the Flexeril will discontinue any narcotic use plan to follow-up outpatient with her ortho/spine physician for continued pain management PT recommending SNF versus home health. care coordination consulted for further discharge needs. Time Spent With Patient Time with patient: 15 - 25 minutes Subjective Date/time seen: 04/07/25 14:20 Interval history: Patient is an 89-year-old female admitted to the medical unit for evaluation and treatment instability secondary to subacute L3 burst fracture as well as large stool burden which was disimpacted in the emergency department. 04/07/2025: Patient feeling better today reports the Flexeril and shot of Toradol helped. Educated patient and family at beside about the need to wear the TSLO brace with ambulation. I reviewed the MRI showing Spondylosis, with recent L2 and L3 burst fractures in severe central canal stenosis of L4-L5. patient's daughter did report she is scheduled to follow with a ortho and global mobility specialist outpatient which I recommend for continued pain management. patient did report she is now having who is stools and no longer feels constipated reports BMs and flatulence. Review of Systems Review of Systems: All systems reviewed & are unremarkable except as noted in HPI and below Exam Const: General: no acute distress and uncomfortable Other: patient with mild to moderate back pain HENMT: Mouth: Yes moist mucous membranes Eyes: General: appearance normal, both eyes and all related structures Neck: Neck: supple Resp: Effort & Inspection: normal respiratory effort Auscultation: clear to auscultation bilaterally Cardio: Rate: regular rate Rhythm: regular rhythm GI: Inspection: non-distended GI Palp: Yes Soft to palpation Auscultation: abnormal bowel sounds ( hyperactive) : General: Yes bladder normal to palpation Bimanual exam- vagina & uterus: bladder normal to palpation Skin: General skin exam: normal color and no rashes or lesions noted Wounds: no wounds Neuro: Speech: normal speech Motor exam (neuro): 5/5 motor strength present throughout Sensory Exam: normal sensation Other: PT to evaluate gait Extrem: General: normal to inspection and no edema Psych: Mental Status: mental status grossly normal Affect: normal affect Objective Data Vital Signs Vital Signs: Vital Signs - 24 hr 04/06/25 20:00 04/06/25 21:07 04/06/25 21:39 Temperature 99 F Pulse Rate 83 88 Respiratory Rate 18 Blood Pressure 130/75 Pulse Oximetry 96 97 Oxygen Delivery Room Air Room Air Fraction of Inspired Oxygen 04/07/25 05:59 04/07/25 09:00 04/07/25 11:35 Temperature 97.7 F Pulse Rate 94 Respiratory Rate 18 Blood Pressure 141/78 H Pulse Oximetry 98 Oxygen Delivery Room Air Room Air Fraction of Inspired Oxygen 04/07/25 13:27 Temperature Pulse Rate Respiratory Rate Blood Pressure Pulse Oximetry Oxygen Delivery Room Air Fraction of Inspired Oxygen Intake/Output Intake/Output: Intake & Output 04/04/25 04/05/25 04/06/25 04/07/25 23:59 23:59 23:59 23:59 Intake Total 1050 2170 1200 Output Total 660 Balance 390 2170 1200 Meds/Results Medications: Active Medications Generic Name Dose Route Start Last Admin Trade Name Freq PRN Reason Stop Dose Admin Acetaminophen 1,000 mg 04/06/25 00:59 Acetaminophen 500 Mg Tablet PO Q8H PRN Mild Pain (1-3) or Fever Albuterol 1 puff 04/06/25 00:58 Albuterol Sulfate (*Sp) Aerosol 1 Puff INHALATION Q4HRT PRN Shortness Of Breath Or Wheezing Amlodipine Besylate 2.5 mg 04/06/25 09:00 04/07/25 08:53 Amlodipine Besylate 2.5 Mg Tablet PO 2.5 mg DAILY PAPITO Administration Amoxicillin/Clavulanate Potassium 1 tablet 04/06/25 21:00 04/07/25 08:53 Amoxicillin/Clavulanate K 875-125 Mg Tab PO 1 tablet Q12HR PAPITO Administration Bisacodyl 10 mg 04/06/25 09:00 04/07/25 08:41 Bisacodyl 10 Mg Suppository RECTAL Not Given QAM PAPITO Cyclobenzaprine HCl 10 mg 04/06/25 14:34 04/06/25 22:49 Cyclobenzaprine Hcl 10 Mg Tablet PO 10 mg Q8H PRN Administration Muscle Spasm Sodium Chloride 1,000 mls @ 75 mls/hr 04/05/25 21:25 04/07/25 04:22 Normal Saline Iv IV CONT 75 mls/hr .[id number] PAPITO Administration Ibuprofen 400 mg 04/06/25 00:59 04/06/25 09:42 Ibuprofen 400 Mg Tablet PO 400 mg Q6H PRN Administration Pain Rated 4-6 Ipratropium [place] 2 spray 04/06/25 06:00 04/07/25 06:38 Ipratropium Nasal [place] 0.06% 15 Ml Bottle NASAL Not Given Q8HR PAPITO Levothyroxine Sodium 112 mcg 04/06/25 06:30 04/07/25 06:37 Levothyroxine Sodium 112 Mcg Tablet PO 112 mcg DAILY@0630 PAPITO Administration Lidocaine 1 patch 04/06/25 09:00 04/07/25 08:41 Lidocaine 5% Patch TRANSDERM Not Given DAILY PAPITO Loratadine 10 mg 04/06/25 09:00 04/07/25 08:42 Loratadine 10 Mg Tablet PO Not Given QAM [facility] Ondansetron HCl 4 mg 04/05/25 21:23 04/07/25 10:10 Ondansetron Inj 4 Mg/2 Ml Vial IV PUSH 4 mg Q4H PRN Administration Nausea Phenyleph/Shark Oil/Min Oil/Petrol 1 applic 04/06/25 23:13 Phenyleph/Shark Oil/Mo/Petrol Cream 26 Gm RECTAL DAILY PRN Hemeroid pain Polyethylene Glycol 17 gm 04/06/25 09:00 04/07/25 08:50 Polyethylene Glycol 3350 17 Gm Powd.Pack PO Not Given QAM [facility] Senna/Docusate Sodium 1 tab 04/06/25 21:00 04/06/25 22:43 Senna/Docusate Sodium Tablet PO 1 tab HS [facility] Administration Radiology Results: ITS Impressions Miscellaneous CT Procedure 04/05/25 20:28 IMPRESSION: 1. Large rectal stool ball with stercoral colitis. 2. Large volume stool consistent with constipation. 3. Slight compression fracture L2 new from one week prior. Labs Labs: Laboratory Results - last 24 hr 04/07/25 05:22 WBC 10.8 H RBC 3.42 L Hgb 10.8 L Hct 32.6 L MCV 95.3 MCH 31.6 MCHC 33.1 RDW 15.3 H Plt Count 438 H MPV 9.8 Sodium 129 L Potassium 3.5 Chloride 104 Carbon Dioxide 21 L Anion Gap 4 BUN 12 D Creatinine 0.66 L Estim Creat Clear Calc 36 Estimated GFR > 60 Glucose 120 H Calcium 6.4 L Total Bilirubin 0.5 AST 37 H ALT 16 Alkaline Phosphatase 97 Total Protein 5.2 L Albumin 2.7 L Quality VTE Prophylaxis VTE prophylaxis: mechanical ordered -Patient's previous records reviewed on admission -ER notes reviewed in detail on admission -discussed all findings and current treatment plan with patient/Family/POA -Consultations reviewed for recommendations -Patient's disposition for safe discharge discussed with community case manager Dictation performed by [employer] direct speech recognition software, therefore director of regional sales variants and typographical errors may occur. Hospitalist [facility] Advance Care Plan I have confirmed that the patient's Advanced Care Plan is present, code status is documented, or surrogate decision maker is listed in patient medical record.: Yes Medication Reconciliation I have utilized all available resources to obtain, update and review the patients current medications (includes all prescriptions, OTC, herbals, cannabis, and nutritional supplements).: Yes The patient is not eligible for med reconciliation; the patient is in a emergent medical situation where delaying treatment would jeopardize the patients health.: No
[2025-04-07 14:39] LABS: Toxigenic C. Diff NEGATIVE (NEGATIVE)
--- NOTE | 2025-04-07 17:31 | P.PNNEUSUR_ITS ---
Progress Note: A&P Assessment and Plan (1) Burst fracture of lumbar vertebra: Code(s): S32.001A - Stable burst fracture of unspecified lumbar vertebra, initial encounter for closed fracture Status: Acute Plan Ms. Payan is an 89-year-old female with history of osteoporosis who presents to the hospital with constipation and new difficulty with urination which has since improved following bowel disimpaction. She is neurologically intact on my exam. I reviewed her MRI lumbar spine which shows evidence of acute to subacute appearing fractures at L2, L3, and L4 with stable and known severe stenosis at L4-5 related to a spondylolisthesis and ligamentum flavum hypertrophy. I do not appreciate new areas of stenosis to explain her recent bowel or bladder symptoms. Fortunately, they seem to have returned to normal. Regarding her right leg pain, I would recommend continued conservative treatment with physical therapy and oral medications. She has received a new brace through [employer] which I would encourage her to wear when mobile. Regarding her known osteoporosis history, I would encourage her to follow-up with her building equipment inspector for this in order to hopefully prevent future fractures. I do not recommend any surgical intervention at this time. Subjective Date/time seen: 04/07/25 17:31 Interval history: She tells me that she is doing better today, particularly with respect to her bowel and bladder symptoms. She attempted to ambulate with therapy but was taken for MRI around the same time as when she started her session. She was only able to walk a short distance, partially due to need for MRI and partially due to pain in her right thigh. She tells me that her bladder function is back to normal in that she has been using her Depends if needed as it is difficult for her to get up to the bathroom. Review of Systems Review of Systems: All systems reviewed & are unremarkable except as noted in HPI and below Exam Narrative: Alert, oriented, answering questions appropriately Full strength in lower extremities Sensation intact to light touch Objective Data Vital Signs Vital Signs: Vital Signs - 24 hr 04/06/25 20:00 04/06/25 21:07 04/06/25 21:39 Temperature 99 F Pulse Rate 83 88 Respiratory Rate 18 Blood Pressure 130/75 Pulse Oximetry 96 97 Oxygen Delivery Room Air Room Air Fraction of Inspired Oxygen 04/07/25 05:59 04/07/25 09:00 04/07/25 11:35 Temperature 97.7 F Pulse Rate 94 Respiratory Rate 18 Blood Pressure 141/78 H Pulse Oximetry 98 Oxygen Delivery Room Air Room Air Fraction of Inspired Oxygen 04/07/25 13:27 04/07/25 14:00 Temperature 97.7 F Pulse Rate 97 Respiratory Rate 16 Blood Pressure 126/71 Pulse Oximetry 96 Oxygen Delivery Room Air Fraction of Inspired Oxygen Intake/Output Intake/Output: Intake & Output 04/04/25 04/05/25 04/06/25 04/07/25 23:59 23:59 23:59 23:59 Intake Total 1050 2170 1200 Output Total 660 Balance 390 2170 1200 Meds/Results Medications: Active Medications Generic Name Dose Route Start Last Admin Trade Name Freq PRN Reason Stop Dose Admin Acetaminophen 1,000 mg 04/06/25 00:59 Acetaminophen 500 Mg Tablet PO Q8H PRN Mild Pain (1-3) or Fever Albuterol 1 puff 04/06/25 00:58 Albuterol Sulfate (*Sp) Aerosol 1 Puff INHALATION Q4HRT PRN Shortness Of Breath Or Wheezing Amlodipine Besylate 2.5 mg 04/06/25 09:00 04/07/25 08:53 Amlodipine Besylate 2.5 Mg Tablet PO 2.5 mg DAILY PAPITO Administration Amoxicillin/Clavulanate Potassium 1 tablet 04/06/25 21:00 04/07/25 08:53 Amoxicillin/Clavulanate K 875-125 Mg Tab PO 1 tablet Q12HR PAPITO Administration Cyclobenzaprine HCl 10 mg 04/06/25 14:34 04/06/25 22:49 Cyclobenzaprine Hcl 10 Mg Tablet PO 10 mg Q8H PRN Administration Muscle Spasm Sodium Chloride 1,000 mls @ 75 mls/hr 04/05/25 21:25 04/07/25 04:22 Normal Saline Iv IV CONT 75 mls/hr .[id number] PAPITO Administration Ibuprofen 400 mg 04/06/25 00:59 04/06/25 09:42 Ibuprofen 400 Mg Tablet PO 400 mg Q6H PRN Administration Pain Rated 4-6 Ipratropium [place] 2 spray 04/06/25 06:00 04/07/25 15:18 Ipratropium Nasal [place] 0.06% 15 Ml Bottle NASAL Not Given Q8HR PAPITO Levothyroxine Sodium 112 mcg 04/06/25 06:30 04/07/25 06:37 Levothyroxine Sodium 112 Mcg Tablet PO 112 mcg DAILY@0630 PAIPTO Administration Lidocaine 1 patch 04/06/25 09:00 04/07/25 08:41 Lidocaine 5% Patch TRANSDERM Not Given DAILY PAPITO Loratadine 10 mg 04/06/25 09:00 04/07/25 08:42 Loratadine 10 Mg Tablet PO Not Given QAM PAPITO Ondansetron HCl 4 mg 04/05/25 21:23 04/07/25 10:10 Ondansetron Inj 4 Mg/2 Ml Vial IV PUSH 4 mg Q4H PRN Administration Nausea Phenyleph/Shark Oil/Min Oil/Petrol 1 applic 04/06/25 23:13 Phenyleph/Shark Oil/Mo/Petrol Cream 26 Gm RECTAL DAILY PRN Hemeroid pain Polyethylene Glycol 17 gm 04/07/25 15:38 Polyethylene Glycol 3350 17 Gm Powd.Pack PO QAM PRN constipation Senna/Docusate Sodium 1 tab 04/06/25 21:00 04/06/25 22:43 Senna/Docusate Sodium Tablet PO 1 tab HS PAPITO Administration Radiology Results: ITS Impressions Miscellaneous CT Procedure 04/05/25 20:28 IMPRESSION: 1. Large rectal stool ball with stercoral colitis. 2. Large volume stool consistent with constipation. 3. Slight compression fracture L2 new from one week prior. Lumbar Spine MRI 04/07/25 14:24 IMPRESSION: 1. Mild lumbar spondylosis most notable for severe central canal stenosis at L4- L5 resulting primarily from ligamentum flavum hypertrophy and 4 mm anterolisthesis L4 on L5. 2. Multiple lumbar and lower thoracic burst fractures which appear relatively recent at L2 and L3, the latter contributing to additional moderate central canal stenosis at this level. Labs Labs: Laboratory Results - last 24 hr 04/07/25 04/07/25 05:22 13:41 WBC 10.8 H RBC 3.42 L Hgb 10.8 L Hct 32.6 L MCV 95.3 MCH 31.6 MCHC 33.1 RDW 15.3 H Plt Count 438 H MPV 9.8 Sodium 129 L Potassium 3.5 Chloride 104 Carbon Dioxide 21 L Anion Gap 4 BUN 12 D Creatinine 0.66 L Estim Creat Clear Calc 36 Estimated GFR > 60 Glucose 120 H Calcium 6.4 L Total Bilirubin 0.5 AST 37 H ALT 16 Alkaline Phosphatase 97 Total Protein 5.2 L Albumin 2.7 L C. difficile (PCR) Negative Imaging My impression: I personally reviewed the MRI lumbar spine which shows evidence of burst fractures at L2 and L3. There is also increased STIR signal in L4 suggesting some worsening of existing fracture at this level. There is mild central stenosis at L2-3 and stable severe central stenosis at L4-5 related to a grade 1 spondylolisthesis and ligamentum flavum hypertrophy
[2025-04-07 20:00] VITALS: PULSE 96; RESP 16; O2SAT 98
[2025-04-07] MEDS: SENNA/DOCUSATE SODIUM TABLET 1 TAB PO (21:40)
[2025-04-07 22:00] VITALS: BP 139/79; PULSE 96; RESP 16; TEMP 36.7; O2SAT 98
[2025-04-08 04:07] LABS: Hematocrit 30.6 % (37.0-47.0); Hemoglobin 10.1 g/dL (12.0-15.0); Mean Corpuscular HGB Conc 33.0 g/dl (32-36); Mean Corpuscular Hemoglobin 31.5 pg (26-34); Mean Corpuscular Volume 95.3 fl (80-100); Platelet Count Result 430 k/mm3 (150-375); Red Blood Count 3.21 M/mm3 (4.2-5.4); White Blood Count 8.3 K/mm3 (4.5-10.0)
[2025-04-08 04:29] LABS: Alanine Aminotransferase 16 U/L (6-35); Albumin Level 2.5 g/dL (3.5-5.1); Alkaline Phosphatase 84 U/L (38-126); Anion Gap 2 mmol/L (4-12); Aspartate Amino Transferase 26 U/L (14-36); Bilirubin,Total 0.4 mg/dL (0.2-1.3); Blood Urea Nitrogen 13 mg/dL (7-17); Calcium 6.0 mg/dL (8.4-10.2); Carbon Dioxide 22 mmol/L (22-30); Chloride 106 mmol/L (98-107); Estimated CRCL calculation 32 ml/min; Estimated Glomerular Filt Rate > 60; Glucose 102 mg/dL (65-110); Potassium 3.6 mmol/L (3.4-5.0); Sodium 130 mmol/L (137-145); Total Protein 4.8 g/dL (6.3-8.2)
[2025-04-08] MEDS: LEVOTHYROXINE SODIUM 112 MCG TABLET PO (05:57)
[2025-04-08 06:00] VITALS: BP 153/69; PULSE 88; RESP 16; TEMP 36.9; O2SAT 94
[2025-04-08] MEDS: IBUPROFEN 400 MG TABLET PO (08:33)
[2025-04-08] MEDS: SODIUM CHLORIDE 0.9% IV 1,000 ML 75 ML IV CONT (08:42)
[2025-04-08 08:55] VITALS: O2SAT 96
--- NOTE | 2025-04-08 12:45 | PCNFU ---
Nutrition Follow-Up Complete: Inadequate oral intake related to loss of appetite, acute colitis as evidenced by report of poor intake Diet advancement - Goal is met Improve PO intake when diet advanced - Slow progress with goal. Continue same goal Goal: Pt current nutrition is Regular. Ensure Plus HP BID (350 kcal, 20 g protein). Nutrition recommendation: No new recommendations. Continue current nutrition care plan and orders. Agree with orders Last recorded weight is 45.4 kg. Bowel Motility: +5 BMs 9.26.25 Labs Reviewed: Hgb 10.1, Hct 30.6, Alb 2.5, Na 130, Mag 2.5 Meds Noted:Zofran, normal saline Skin: No skin issues. Additional Notes: Intakes 0-25% on regular diet. Having bowel movements with bowel regimen. Continue with current care plan. Agree with orders. Monitoring intakes, weights, labs, diet orders, plan of care Follow up in 3 days
--- NOTE | 2025-04-08 13:54 | P.PNIM_ITS ---
Progress Note: A&P Assessment and Plan (1) Compression fracture of lumbar spine, non-traumatic: Code(s): M48.56XA - Collapsed vertebra, not elsewhere classified, lumbar region, initial encounter for fracture <Pedro Shoemaker, Student - Last Filed: 04/08/25 14:14> Status: Acute <Pedro Shoemaker, - Last Filed: 04/08/25 14:14> Assessment and Plan: Patient with follow-up lumbar spine CT showing subacute L3 burst fracture remained stable from previous on 03/08/2025. CT also showing severe spondylosis of the L4-L5. patient states she has had no relief from pain but has not been wearing her TSLO brace. Patient states she has severely unsteady gait and inability to care for self or do her ADLs. patient also refusing any lidocaine patches * neurosurgery consulted * I reviewed MRI * d/C narcotics doing well with flexeril and the 1 time dose of Toradol would recommend a NSAID at D/C * did add Flexeril p.r.n. for any muscle spasms also added 1 time dose Toradol * and new TSLO brace with fitting was done inpatient * PT/OT for evaluation * F/U outpatient with ortho/spine in [place] after discharge for continued pain management * Likely need rehab post discharge <Pedro Shoemaker, Student - Last Filed: 04/08/25 14:14> (2) Spondylosis: Code(s): M47.9 - Spondylosis, unspecified <Pedro Shoemaker, Student - Last Filed: 04/08/25 14:14> Status: Acute <Pedro Shoemaker, Student - Last Filed: 04/08/25 14:14> Assessment and Plan: see above could be a contributing fracture neurosurgery following appreciate any further recommendations on pain management <Pedro Shoemaker, - Last Filed: 04/08/25 14:14> (3) Fecal impaction: Code(s): K56.41 - Fecal impaction <Pedro Shoemaker, - Last Filed: 04/08/25 14:14> Status: Acute <Pedro Shoemaker, - Last Filed: 04/08/25 14:14> Assessment and Plan: patient in the emergency room due to constipation and abdominal pain secondary to recent acute L3 burst fracture has been on narcotics including tramadol and [place]. CT abdomen showing large stool burden was disimpacted in the emergency department * Tolerating regular diet * Discontinue IV fluids * Change miralax and senna to PRN and discontinue docusate * Reported some diarrhea today, add one time dose of loperamide <Pedro Shoemaker, - Last Filed: 04/08/25 14:14> (4) Urinary retention with incomplete bladder emptying: Code(s): R33.9 - Retention of urine, unspecified <Pedro Shoemaker, - Last Filed: 04/08/25 14:14> Status: Acute <Pedro Shoemaker, - Last Filed: 04/08/25 14:14> Assessment and Plan: Unable to void with urinary bladder containing approximately 800mL urine. * Beard catheter to inserted and to remain in place for at least 48 hours then voiding trial * Add tamsulosin 0.4mg <Pedro Shoemaker, Student - Last Filed: 04/08/25 14:14> Unable to void with urinary bladder containing approximately 800mL urine. * Beard catheter to inserted and to remain in place for at least 48 hours then voiding trial * Add tamsulosin 0.4mg <Sara Ascencio, SANFORIZER - Last Filed: 04/08/25 14:51> (5) Essential hypertension: Code(s): I10 - Essential (primary) hypertension <Pedro Shoemaker, Student - Last Filed: 04/08/25 14:14> Status: Acute <Pedro Sheomaker, Student - Last Filed: 04/08/25 14:14> Assessment and Plan: * resume patient's amlodipine * monitor BP per unit protocol <Pedro Shoemaker, Student - Last Filed: 04/08/25 14:14> (6) Hypothyroidism (acquired): Code(s): E03.9 - Hypothyroidism, unspecified <Pedro Shoemaker, Student - Last Filed: 04/08/25 14:14> Status: Acute <Pedro Shoemaker, Student - Last Filed: 04/08/25 14:14> Assessment and Plan: * continued levothyroxine <Pedro Shoemaker Student - Last Filed: 04/08/25 14:14> Assessment and Plan: Code status: DNR DVT prophylaxis: SCD Stress ulcer prophylaxis: PT/OT notes: PT/OT evaluation Disposition: patient continues admission MRI completed today appreciate neuro surgeries recommendations on pain management the patient is doing better with the Flexeril will discontinue any narcotic use plan to follow-up outpatient with her ortho/spine physician for continued pain management PT recommending SNF versus home health. care coordination consulted for further discharge needs. <Pedro Shoemaker, Student - Last Filed: 04/08/25 14:14> Time Spent With Patient Time with patient: 15 - 25 minutes <Pedro Shoemaker Student - Last Filed: 04/08/25 14:14> Subjective Date/time seen: 04/08/25 13:54 <Pedro Shoemaker Student - Last Filed: 04/08/25 14:14> Interval history: Patient is an 89-year-old female admitted to the medical unit for evaluation and treatment instability secondary to subacute L3 burst fracture as well as large stool burden which was disimpacted in the emergency department. 04/08/2025: Patient evaluated today in no acute distress. Patient states that she is tolerating a regular diet and having multiple loose bowel movements. C-Diff negative. Patient requesting imodium to help with diarrhea. Patient also reports irritation in the left periorbital region. A small scratch was noted at the area and the patient was advised to avoid touching the area to promote healing. Patient also requesting tums for heartburn. Denies chest pain, shortness of breath, and abdominal pain. Awaiting insurance authorization/facility acceptance for rehab placement at discharge. <Pedro Shoemaker, Student - Last Filed: 04/08/25 14:14> Patient is an 89-year-old female admitted to the medical unit for evaluation and treatment instability secondary to subacute L3 burst fracture as well as large stool burden which was disimpacted in the emergency department. 04/08/2025: Patient evaluated today in no acute distress. Patient states that she is tolerating a regular diet and having multiple loose bowel movements. C-Diff negative. Patient requesting imodium to help with diarrhea. Patient also reports irritation in the left periorbital region. A small scratch was noted at the area and the patient was advised to avoid touching the area to promote healing. Patient also requesting tums for heartburn. Denies chest pain, shortness of breath, and abdominal pain. Awaiting insurance authorization/facility acceptance for rehab placement at discharge. <Sara Ascencio APRN - Last Filed: 04/08/25 14:51> Review of Systems Review of Systems: All systems reviewed & are unremarkable except as noted in HPI and below <Pedro Shoemaker Student - Last Filed: 04/08/25 14:14> Gastrointestinal: Gastrointestinal: Reports heartburn and Reports diarrhea <Pedro Shoemaker Student - Last Filed: 04/08/25 14:14> Integumentary/Breasts: Skin/Breast: Reports other (Irritation to the left periorbital region) <Pedro Shoemaker Student - Last Filed: 04/08/25 14:14> Exam Const: General: no acute distress and uncomfortable <Pedro Shoemaker Student - Last Filed: 04/08/25 14:14> Other: patient with mild to moderate back pain <Pedro Shoemaker Student - Last Filed: 04/08/25 14:14> HENMT: Mouth: Yes moist mucous membranes <Pedro Shoemaker Student - Last Filed: 04/08/25 14:14> Eyes: General: appearance normal, both eyes and all related structures <Pedro Shoemaker Student - Last Filed: 04/08/25 14:14> Neck: Neck: supple <Pedro Shoemaker Student - Last Filed: 04/08/25 14:14> Resp: Effort & Inspection: normal respiratory effort <Pedro Shoemaker Student - Last Filed: 04/08/25 14:14> Auscultation: clear to auscultation bilaterally <Pedro Shoemaker Student - Last Filed: 04/08/25 14:14> Cardio: Rate: regular rate <Pedro Shoemaker Student - Last Filed: 04/08/25 14:14> Rhythm: regular rhythm <Pedro Shoemaker Student - Last Filed: 04/08/25 14:14> GI: Inspection: non-distended <Pedro Shoemaker Student - Last Filed: 04/08/25 14:14> GI Palp: Yes Soft to palpation <Pedro Shoemaker, - Last Filed: 04/08/25 14:14> Auscultation: abnormal bowel sounds ( hyperactive) <Pedro Shoemaker, Student - Last Filed: 04/08/25 14:14> : General: Yes bladder normal to palpation <Pedro Shoemaker, Student - Last Filed: 04/08/25 14:14> Bimanual exam- vagina & uterus: bladder normal to palpation <Pedro Shelldamari, Student - Last Filed: 04/08/25 14:14> Urinary Catheter: Urinary Catheter: patent and draining and urine clear <Pedro Shellcheyi, - Last Filed: 04/08/25 14:14> Skin: General skin exam: normal color <Pedro Shellcheyi, Student - Last Filed: 04/08/25 14:14> Other: Very small abration noted to the left lateral periorbital region measuring <1 CM <Pedro Shellcheyi, Student - Last Filed: 04/08/25 14:14> Neuro: Speech: normal speech <Pedro Shoemaker, - Last Filed: 04/08/25 14:14> Motor exam (neuro): 5/5 motor strength present throughout <Pedro Shelldamari - Last Filed: 04/08/25 14:14> Sensory Exam: normal sensation <Pedro SalazarLalitha Sulemandamari, - Last Filed: 04/08/25 14:14> Other: PT to evaluate gait <Pedro SalazarLalitha Sulemandamari, Student - Last Filed: 04/08/25 14:14> Extrem: General: normal to inspection and no edema <Pedro SalazarLalitha Sulemandamari, - Last Filed: 04/08/25 14:14> Psych: Mental Status: mental status grossly normal <Pedro MartinLalitha Sulemandamari, Student - Last Filed: 04/08/25 14:14> Affect: normal affect <Pedro MartinLalitha Shoemaker, Student - Last Filed: 04/08/25 14:14> Objective Data Vital Signs Vital Signs: Vital Signs - 24 hr 04/07/25 14:00 04/07/25 20:00 04/07/25 22:00 Temperature 97.7 F 98.1 F Pulse Rate 97 96 96 Respiratory Rate 16 16 16 Blood Pressure 126/71 139/79 Pulse Oximetry 96 98 98 Oxygen Delivery Room Air Fraction of Inspired Oxygen 21 04/08/25 06:00 04/08/25 08:55 Temperature 98.5 F Pulse Rate 88 Respiratory Rate 16 Blood Pressure 153/69 H Pulse Oximetry 94 96 Oxygen Delivery Room Air Fraction of Inspired Oxygen <Pedro Shoemaker, Student - Last Filed: 04/08/25 14:14> Intake/Output Intake/Output: Intake & Output 04/05/25 04/06/25 04/07/25 04/08/25 23:59 23:59 23:59 23:59 Intake Total 1050 2170 3680 340 Output Total 660 Balance 390 2170 3680 340 <Pedro Shoemaker, Student - Last Filed: 04/08/25 14:14> Meds/Results Medications: Active Medications Generic Name Dose Route Start Last Admin Trade Name Freq PRN Reason Stop Dose Admin Acetaminophen 1,000 mg 04/06/25 00:59 Acetaminophen 500 Mg Tablet PO Q8H PRN Mild Pain (1-3) or Fever Albuterol 1 puff 04/06/25 00:58 Albuterol Sulfate (*Sp) Aerosol 1 Puff INHALATION Q4HRT PRN Shortness Of Breath Or Wheezing Amlodipine Besylate 2.5 mg 04/06/25 09:00 04/08/25 08:20 Amlodipine Besylate 2.5 Mg Tablet PO 2.5 mg DAILY PAPITO Administration Amoxicillin/Clavulanate Potassium 1 tablet 04/06/25 21:00 04/08/25 08:20 Amoxicillin/Clavulanate K 875-125 Mg Tab PO 1 tablet Q12HR PAPITO Administration Cyclobenzaprine HCl 10 mg 04/06/25 14:34 04/06/25 22:49 Cyclobenzaprine Hcl 10 Mg Tablet PO 10 mg Q8H PRN Administration Muscle Spasm Sodium Chloride 1,000 mls @ 75 mls/hr 04/05/25 21:25 04/08/25 08:42 Normal Saline Iv IV CONT 75 mls/hr .[id number] PAPITO Administration Ibuprofen 400 mg 04/06/25 00:59 04/08/25 08:33 Ibuprofen 400 Mg Tablet PO 400 mg Q6H PRN Administration Pain Rated 4-6 Ipratropium [place] 2 spray 04/06/25 06:00 04/08/25 05:59 Ipratropium Nasal [place] 0.06% 15 Ml Bottle NASAL 2 spray Q8HR PAPITO Administration Levothyroxine Sodium 112 mcg 04/06/25 06:30 04/08/25 05:57 Levothyroxine Sodium 112 Mcg Tablet PO 112 mcg DAILY@0630 PAPITO Administration Lidocaine 1 patch 04/06/25 09:00 04/08/25 08:21 Lidocaine 5% Patch TRANSDERM Not Given DAILY [facility] Loratadine 10 mg 04/06/25 09:00 04/08/25 08:22 Loratadine 10 Mg Tablet PO Not Given QAM [facility] Ondansetron HCl 4 mg 04/05/25 21:23 04/07/25 10:10 Ondansetron Inj 4 Mg/2 Ml Vial IV PUSH 4 mg Q4H PRN Administration Nausea Phenyleph/Shark Oil/Min Oil/Petrol 1 applic 04/06/25 23:13 Phenyleph/Shark Oil/Mo/Petrol Cream 26 Gm RECTAL DAILY PRN Hemeroid pain Polyethylene Glycol 17 gm 04/07/25 15:38 Polyethylene Glycol 3350 17 Gm Powd.Pack PO QAM PRN constipation Senna/Docusate Sodium 1 tab 04/06/25 21:00 04/07/25 21:40 Senna/Docusate Sodium Tablet PO 1 tab HS PAPITO Administration <Pedro Shoemaker, Student - Last Filed: 04/08/25 14:14> Radiology Results: ITS Impressions Miscellaneous CT Procedure 04/05/25 20:28 IMPRESSION: 1. Large rectal stool ball with stercoral colitis. 2. Large volume stool consistent with constipation. 3. Slight compression fracture L2 new from one week prior. Lumbar Spine MRI 04/07/25 14:24 IMPRESSION: 1. 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 2. Multiple lumbar and lower thoracic burst fractures which appear relatively recent at L2 and L3, the latter contributing to additional moderate central canal stenosis at this level. <Pedro Shoemaker - Last Filed: 04/08/25 14:14> Labs Labs: Laboratory Results - last 24 hr 04/07/25 04/08/25 13:41 03:56 WBC 8.3 RBC 3.21 L Hgb 10.1 L Hct 30.6 L MCV 95.3 MCH 31.5 MCHC 33.0 RDW 15.4 H Plt Count 430 H MPV 9.3 Sodium 130 L Potassium 3.6 Chloride 106 Carbon Dioxide 22 Anion Gap 2 L BUN 13 Creatinine 0.75 Estim Creat Clear Calc 32 Estimated GFR > 60 Glucose 102 Calcium 6.0 L Total Bilirubin 0.4 AST 26 ALT 16 Alkaline Phosphatase 84 Total Protein 4.8 L Albumin 2.5 L C. difficile (PCR) Negative <Pedro Shoemaker - Last Filed: 04/08/25 14:14> Quality VTE Prophylaxis VTE prophylaxis: mechanical ordered <Pedro Shoemaker - Last Filed: 04/08/25 14:14> -Patient's previous records reviewed on admission -ER notes reviewed in detail on admission -discussed all findings and current treatment plan with patient/Family/POA -Consultations reviewed for recommendations -Patient's disposition for safe discharge discussed with community case manager Dictation performed by [employer] direct speech recognition software, therefore interior surface insulation worker variants and typographical errors may occur. <Pedro Shoemaker - Last Filed: 04/08/25 14:14> Hospitalist MIPS Advance Care Plan I have confirmed that the patient's Advanced Care Plan is present, code status is documented, or surrogate decision maker is listed in patient medical record.: Yes <Pedro Shoemaker - Last Filed: 04/08/25 14:14> Medication Reconciliation I have utilized all available resources to obtain, update and review the patients current medications (includes all prescriptions, OTC, herbals, cannabis, and nutritional supplements).: Yes <Pedro Shoemaker - Last Filed: 04/08/25 14:14> The patient is not eligible for med reconciliation; the patient is in a emergent medical situation where delaying treatment would jeopardize the patients health.: No <Pedro Shoemaker Student - Last Filed: 04/08/25 14:14> Attestation Supervising Provider Attestation I have personally reviewed and assessed patient agree with the following documentation <Sara Ascencio APRN - Last Filed: 04/08/25 14:51>
[2025-04-08 14:00] VITALS: BP 145/74; PULSE 82; RESP 16; TEMP 36.8; O2SAT 100
[2025-04-08] MEDS: LOPERAMIDE HCL 2 MG CAPSULE 4 MG PO (14:41)
[2025-04-08] MEDS: TAMSULOSIN HCL 0.4 MG CAPSULE PO (14:45)
[2025-04-08 21:04] VITALS: BP 150/67; PULSE 73; RESP 20; TEMP 36.5; O2SAT 97
[2025-04-09 04:54] LABS: Hematocrit 32.7 % (37.0-47.0); Hemoglobin 10.6 g/dL (12.0-15.0); Mean Corpuscular HGB Conc 32.4 g/dl (32-36); Mean Corpuscular Hemoglobin 31.5 pg (26-34); Mean Corpuscular Volume 97.0 fl (80-100); Platelet Count Result 483 k/mm3 (150-375); Red Blood Count 3.37 M/mm3 (4.2-5.4); White Blood Count 10.0 K/mm3 (4.5-10.0)
[2025-04-09 05:29] LABS: Alanine Aminotransferase 20 U/L (6-35); Albumin Level 2.9 g/dL (3.5-5.1); Alkaline Phosphatase 100 U/L (38-126); Anion Gap 7 mmol/L (4-12); Aspartate Amino Transferase 34 U/L (14-36); Bilirubin,Total 0.4 mg/dL (0.2-1.3); Blood Urea Nitrogen 9 mg/dL (7-17); Calcium 6.2 mg/dL (8.4-10.2); Carbon Dioxide 20 mmol/L (22-30); Chloride 107 mmol/L (98-107); Estimated CRCL calculation 35 ml/min; Estimated Glomerular Filt Rate > 60; Glucose 88 mg/dL (65-110); Potassium 3.5 mmol/L (3.4-5.0); Sodium 134 mmol/L (137-145); Total Protein 5.6 g/dL (6.3-8.2)
[2025-04-09] MEDS: LEVOTHYROXINE SODIUM 112 MCG TABLET PO (05:58)
[2025-04-09 06:00] VITALS: BP 179/49; PULSE 94; RESP 20; TEMP 36.7; O2SAT 95
--- NOTE | 2025-04-09 08:30 | P.PNIM_ITS ---
Progress Note: A&P Assessment and Plan (1) Compression fracture of lumbar spine, non-traumatic: Code(s): M48.56XA - Collapsed vertebra, not elsewhere classified, lumbar region, initial encounter for fracture Status: Acute Assessment and Plan: Patient with follow-up lumbar spine CT showing subacute L3 burst fracture remained stable from previous on 03/08/2025. CT also showing severe spondylosis of the L4-L5. patient states she has had no relief from pain but has not been wearing her TSLO brace. Patient states she has severely unsteady gait and inability to care for self or do her ADLs. patient also refusing any lidocaine patches * neurosurgery consulted * I reviewed MRI * d/C narcotics doing well with Flexeril and the 1 time dose of Toradol would recommend a NSAID at D/C * did add Flexeril p.r.n. for any muscle spasms also added 1 time dose Toradol * and new TSLO brace with fitting was done inpatient * PT/OT for evaluation * F/U outpatient with ortho/spine in [place] after discharge for continued pain management * Pending Auth for [facility] rehab (2) Spondylosis: Code(s): M47.9 - Spondylosis, unspecified Status: Acute Assessment and Plan: see above could be a contributing fracture neurosurgery following appreciate any further recommendations on pain management (3) Urinary retention with incomplete bladder emptying: Code(s): R33.9 - Retention of urine, unspecified Status: Acute Assessment and Plan: Unable to void with urinary bladder containing approximately 800mL urine. * Beard catheter to inserted and to remain in place for at least 48 hours then voiding trial * Add tamsulosin 0.4mg (4) Essential hypertension: Code(s): I10 - Essential (primary) hypertension Status: Acute Assessment and Plan: * resume patient's amlodipine * monitor BP per unit protocol (5) Hypothyroidism (acquired): Code(s): E03.9 - Hypothyroidism, unspecified Status: Acute Assessment and Plan: * continued levothyroxine (6) Fecal impaction: Code(s): K56.41 - Fecal impaction Status: Resolved Assessment and Plan: patient in the emergency room due to constipation and abdominal pain secondary to recent acute L3 burst fracture has been on narcotics including tramadol and [place]. CT abdomen showing large stool burden was disimpacted in the emergency department * Tolerating regular diet * Discontinue IV fluids * Change miralax and senna to PRN and discontinue docusate * Reported some diarrhea today, add one time dose of loperamide Plan Code status: DNR DVT prophylaxis: SCD Stress ulcer prophylaxis: PT/OT notes: PT/OT evaluation Disposition: patient continues admission MRI completed today appreciate neuro surgeries recommendations on pain management the patient is doing better with the Flexeril will discontinue any narcotic use plan to follow-up outpatient with her ortho/spine physician for continued pain management. Patient medically stable for discharge waiting on insurance authorization for SNF rehab to [facility]. Time Spent With Patient Time with patient: 15 - 25 minutes Subjective Date/time seen: 04/09/25 08:30 Interval history: Patient is an 89-year-old female admitted to the medical unit for evaluation and treatment instability secondary to subacute L3 burst fracture as well as large stool burden which was disimpacted in the emergency department. 04/09/2025: Review of Systems Review of Systems: All systems reviewed & are unremarkable except as noted in HPI and below Exam Const: General: comfortable, no acute distress and uncomfortable Other: patient with mild to moderate back pain HENMT: Mouth: Yes moist mucous membranes Eyes: General: appearance normal, both eyes and all related structures Pupils: Equal, round and reactive pupils present Neck: Neck: supple Resp: Effort & Inspection: normal respiratory effort Auscultation: clear to auscultation bilaterally Cardio: Rate: regular rate Rhythm: regular rhythm GI: Inspection: non-distended Auscultation: abnormal bowel sounds ( hyperactive) : General: Yes bladder normal to palpation Bimanual exam- vagina & uterus: bladder normal to palpation Skin: General skin exam: normal color and no rashes or lesions noted Wounds: no wounds Neuro: Cranial nerves: Yes Equal, round and reactive pupils present Speech: normal speech Motor exam (neuro): 5/5 motor strength present throughout Sensory Exam: normal sensation Other: PT to evaluate gait Extrem: General: normal to inspection and no edema Psych: Mental Status: mental status grossly normal Affect: normal affect Objective Data Vital Signs Vital Signs: Vital Signs - 24 hr 04/08/25 08:55 04/08/25 14:00 04/08/25 21:04 Temperature 98.2 F 97.7 F Pulse Rate 82 73 Respiratory Rate 16 20 Blood Pressure 145/74 H 150/67 H Pulse Oximetry 96 100 97 Oxygen Delivery Room Air 04/08/25 22:00 04/09/25 06:00 Temperature 98.1 F Pulse Rate 94 Respiratory Rate 20 Blood Pressure 179/49 H Pulse Oximetry 95 Oxygen Delivery Room Air Intake/Output Intake/Output: Intake & Output 04/06/25 04/07/25 04/08/25 04/09/25 23:59 23:59 23:59 23:59 Intake Total 2170 3680 1484 300 Output Total 1000 800 Balance 2170 3680 484 -500 Meds/Results Medications: Active Medications Generic Name Dose Route Start Last Admin Trade Name Freq PRN Reason Stop Dose Admin Acetaminophen 1,000 mg 04/06/25 00:59 Acetaminophen 500 Mg Tablet PO Q8H PRN Mild Pain (1-3) or Fever Albuterol 1 puff 04/06/25 00:58 Albuterol Sulfate (*Sp) Aerosol 1 Puff INHALATION Q4HRT PRN Shortness Of Breath Or Wheezing Amlodipine Besylate 2.5 mg 04/06/25 09:00 04/08/25 08:20 Amlodipine Besylate 2.5 Mg Tablet PO 2.5 mg DAILY PAPITO Administration Amoxicillin/Clavulanate Potassium 1 tablet 04/06/25 21:00 04/08/25 22:02 Amoxicillin/Clavulanate K 875-125 Mg Tab PO 1 tablet Q12HR PAPITO Administration Calcium Carbonate 200 mg 04/08/25 14:04 Calcium Carbonate (Tums) 500 Mg (200 Mg Elemental) PO Q6H PRN Indigestion Cyclobenzaprine HCl 10 mg 04/06/25 14:34 04/06/25 22:49 Cyclobenzaprine Hcl 10 Mg Tablet PO 10 mg Q8H PRN Administration Muscle Spasm Ibuprofen 400 mg 04/06/25 00:59 04/08/25 08:33 Ibuprofen 400 Mg Tablet PO 400 mg Q6H PRN Administration Pain Rated 4-6 Ipratropium [place] 2 spray 04/06/25 06:00 04/09/25 05:59 Ipratropium Nasal [place] 0.06% 15 Ml Bottle NASAL 2 spray Q8HR PAPITO Administration Levothyroxine Sodium 112 mcg 04/06/25 06:30 04/09/25 05:58 Levothyroxine Sodium 112 Mcg Tablet PO 112 mcg DAILY@0630 PAPITO Administration Lidocaine 1 patch 04/06/25 09:00 04/08/25 08:21 Lidocaine 5% Patch TRANSDERM Not Given DAILY [facility] Loratadine 10 mg 04/06/25 09:00 04/08/25 08:22 Loratadine 10 Mg Tablet PO Not Given QAM [facility] Ondansetron HCl 4 mg 04/05/25 21:23 04/07/25 10:10 Ondansetron Inj 4 Mg/2 Ml Vial IV PUSH 4 mg Q4H PRN Administration Nausea Phenyleph/Shark Oil/Min Oil/Petrol 1 applic 04/06/25 23:13 Phenyleph/Shark Oil/Mo/Petrol Cream 26 Gm RECTAL DAILY PRN Hemeroid pain Polyethylene Glycol 17 gm 04/07/25 15:38 Polyethylene Glycol 3350 17 Gm Powd.Pack PO QAM PRN constipation Senna/Docusate Sodium 1 tab 04/08/25 14:05 Senna/Docusate Sodium Tablet PO HS PRN constipation Tamsulosin HCl 0.4 mg 04/08/25 14:05 04/08/25 14:45 Tamsulosin Hcl 0.4 Mg Capsule PO 0.4 mg QAM PAPITO Administration Radiology Results: ITS Impressions Miscellaneous CT Procedure 04/05/25 20:28 IMPRESSION: 1. Large rectal stool ball with stercoral colitis. 2. Large volume stool consistent with constipation. 3. Slight compression fracture L2 new from one week prior. Lumbar Spine MRI 04/07/25 14:24 IMPRESSION: 1. Mild lumbar spondylosis most notable for severe central canal stenosis at L4- L5 resulting primarily from ligamentum flavum hypertrophy and 4 mm anterolisthesis L4 on L5. 2. Multiple lumbar and lower thoracic burst fractures which appear relatively recent at L2 and L3, the latter contributing to additional moderate central canal stenosis at this level. Labs Labs: Laboratory Results - last 24 hr 04/09/25 04:40 WBC 10.0 RBC 3.37 L Hgb 10.6 L Hct 32.7 L MCV 97.0 MCH 31.5 MCHC 32.4 RDW 15.6 H Plt Count 483 H MPV 9.4 Sodium 134 L Potassium 3.5 Chloride 107 Carbon Dioxide 20 L Anion Gap 7 BUN 9 Creatinine 0.69 L Estim Creat Clear Calc 35 Estimated GFR > 60 Glucose 88 Calcium 6.2 L Total Bilirubin 0.4 AST 34 ALT 20 Alkaline Phosphatase 100 Total Protein 5.6 L Albumin 2.9 L Quality VTE Prophylaxis VTE prophylaxis: mechanical ordered -Patient's previous records reviewed on admission -ER notes reviewed in detail on admission -discussed all findings and current treatment plan with patient/Family/POA -Consultations reviewed for recommendations -Patient's disposition for safe discharge discussed with gearcase assembler -radiology imaging, EKG and test results personally reviewed and interpreted unless otherwise specified Dictation performed by [email or web address] direct speech recognition software, therefore grease refining supervisor variants and typographical errors may occur. Hospitalist MIPS Advance Care Plan I have confirmed that the patient's Advanced Care Plan is present, code status is documented, or surrogate decision maker is listed in patient medical record.: Yes Medication Reconciliation I have utilized all available resources to obtain, update and review the patients current medications (includes all prescriptions, OTC, herbals, cannabis, and nutritional supplements).: Yes The patient is not eligible for med reconciliation; the patient is in a emergent medical situation where delaying treatment would jeopardize the patients health.: No
[2025-04-09] MEDS: LORATADINE 10 MG TABLET PO (10:37)
[2025-04-09] MEDS: TAMSULOSIN HCL 0.4 MG CAPSULE PO (10:37)
[2025-04-09] MEDS: IBUPROFEN 400 MG TABLET PO (10:46)
[2025-04-09 13:32] VITALS: BP 176/80; PULSE 72; RESP 18; TEMP 36.8; O2SAT 95
--- NOTE | 2025-04-09 15:00 | P.DS_ITS ---
DS: Admitting Diagnosis Discharge Date 04/09/2025 Admitting Diagnosis L2 and L3 burst fracture/fecal impaction DS: Discharge Diagnosis Discharge Diagnosis (1) Compression fracture of lumbar spine, non-traumatic: Code(s): M48.56XA - Collapsed vertebra, not elsewhere classified, lumbar region, initial encounter for fracture Status: Acute (2) Spondylosis: Code(s): M47.9 - Spondylosis, unspecified Status: Acute (3) Urinary retention with incomplete bladder emptying: Code(s): R33.9 - Retention of urine, unspecified Status: Acute (4) Essential hypertension: Code(s): I10 - Essential (primary) hypertension Status: Acute (5) Hypothyroidism (acquired): Code(s): E03.9 - Hypothyroidism, unspecified Status: Acute (6) Fecal impaction: Code(s): K56.41 - Fecal impaction Status: Resolved DS: Summary Hospital Course Reason for hospitalization: L2-L3 burst fracture/fecal impaction Hospital Course: Admission: 89-year-old female with history of hypertension, hypothyroidism, with an L3 burst fracture currently being managed conservatively with [place] and tramadol presents to [facility] ER 04/05/2025 complaining of persistent pain in her lower back, radiating down her buttock and posterior thigh. Also reports she has not had a bowel movement in a week despite taking multiple laxatives. She has had trouble urinating. Denies incontinence, numbness, weakness. In the ED: WBC [id number]. Lumbar spine CT demonstrating subacute L3 burst fracture stable from 03/08/2025, severe spondylosis at L4-L5. Abdomen pelvis CT with contrast demonstrates large rectal stool ball with steroid colo colitis, large volume stool consistent with constipation and slight compression fracture L2 new from 1 week prior. She was given Versed and manual disimpaction performed in the ER. After evaluating the patient again she had no symptoms to report. Straight cath performed in the ER as well. She was given ceftriaxone and Flagyl. Hospital Course: Patient admitted to the wound commuted for further evaluation treatment subacute L2-L3 burst fractures as secondary to narcotic use. Patient was continued on bowel regiment which had resolution after 2 days initially started having episodes of diarrhea a C diff was done which was negative provided patient with Imodium. Patient was also seen by neuro surgery who recommended conservative treatment with physical therapy and pain management. Patient did have a new fitted TSLO brace delivered at bedside who was instructed to use with any ambulation there is no indication for surgical intervention at this time. I did initiate patient on Flexeril p.r.n. due to reported muscle spasms patient with overall relief of symptoms prior to discharge. She had an evaluation by PT/OT due to her concerns of inability to care for self for do her ADLs who recommended SNF/rehab with goal to return home with spouse. Patient was seen assessed prior to discharge in no acute distress no new complaints. [facility]. Status at Discharge Functional status at discharge: uses cane/walker Overall status at discharge: patient is progressing back to baseline Time Spent with Patient Time attestation: Total time spent providing and/or coordinating discharge services: Time spent: Greater than 30 minutes Exam 2 Const: General: comfortable, no acute distress and uncomfortable Other: patient with mild to moderate back pain HENMT: Mouth: Yes moist mucous membranes Eyes: General: appearance normal, both eyes and all related structures Pupils: Equal, round and reactive pupils present Neck: Neck: supple Resp: Effort & Inspection: normal respiratory effort Auscultation: clear to auscultation bilaterally Cardio: Rate: regular rate Rhythm: regular rhythm GI: Inspection: non-distended Auscultation: abnormal bowel sounds ( hyperactive) : General: Yes bladder normal to palpation Bimanual exam- vagina & uterus: bladder normal to palpation Urinary Catheter: Urinary Catheter: patent and draining and urine clear Skin: General skin exam: normal color and no rashes or lesions noted Wounds: no wounds Other: Very small abration noted to the left lateral periorbital region measuring <1 CM Neuro: Cranial nerves: Yes Equal, round and reactive pupils present Speech: normal speech Motor exam (neuro): 5/5 motor strength present throughout Sensory Exam: normal sensation Other: PT to evaluate gait Extrem: General: normal to inspection and no edema Psych: Mental Status: mental status grossly normal Affect: normal affect DS: Data Data Completed and Pending Labs on day of discharge: Labs from last 24 hours 04/09/25 04/09/25 14:47 04:40 WBC 10.0 RBC 3.37 L Hgb 10.6 L Hct 32.7 L MCV 97.0 MCH 31.5 MCHC 32.4 RDW 15.6 H Plt Count 483 H MPV 9.4 Sodium 134 L Potassium 3.5 Chloride 107 Carbon Dioxide 20 L Anion Gap 7 BUN 9 Creatinine 0.69 L Estim Creat Clear Calc 35 Estimated GFR > 60 Glucose 88 Calcium 6.2 L Total Bilirubin 0.4 AST 34 ALT 20 Alkaline Phosphatase 100 Total Protein 5.6 L Albumin 2.9 L SARS-CoV-2 RNA (RT-PCR) Pending Preliminary micro results at discharge 04/05/25 21:36 Blood Culture - Preliminary Blood Discharge Plan Discharge Attending physician on discharge: Feredom Sanchez Consulting providers: Jessica Carrera; Sara Ascencio; Pedro Shoemaker Discharging Clinician: Sara Ascencio Anticipated Discharge Date/Time: 04/09/25 14:52 Patient Disposition: SNF Activity: as tolerated and other - see discharge instructions Diet: regular Discharge Instructions: 1). Burst fractures L2-L3/spondylosis * Encourage and recommend wearing your TSLO brace with any ambulation and working with physical therapy * I have Flexeril p.r.n. for muscle spasms * Can use NSAIDs for [id number] pain * Follow-up ortho/spine physician outpatient 2). Urinary retention * During hospitalization did urinary retention which time a Beard catheter had placed I have started you medication Flomax please take as indicated How can you care for yourself at home? ? Keep track of any new symptoms or changes in your symptoms. ? Rest until you feel better. ? Be safe with medicines. Take your medicines exactly as prescribed. Call your doctor if you think you are having a problem with your medicine. ? Do not drive after taking a prescription pain medicine. ? Ensure to follow-up with primary care physician as indicated and provide updated medication list provided to you at discharge. When should you call for help? Call 911 anytime you think you may need emergency care. For example, call if: ? You passed out (lost consciousness). Call your doctor now or seek immediate medical care if: ? You have new symptoms like fever, difficulty breathing, Chest pain, vomiting, or rash. ? You have new or different pain. ? You are confused and are having trouble thinking clearly. ? Your symptoms are getting worse. Watch closely for changes in your health, and be sure to contact your doctor if: ? You do not get better as expected. Patient Instructions: Thoracolumbar Fracture (DC), Lumbar Radiculopathy (GEN) Patient Language: Wolof Stand Alone Forms: General Discharge Information, Detention Discharge Follow-up/Referrals: Fernando Ramírez MD [Primary Care Provider, Family Practice] - 4 Weeks Discharge Medications: New cyclobenzaprine 10 mg Tablet 10 mg PO Q8H PRN (Reason: Muscle Spasm) Qty: 1 0RF calcium carbonate 500 mg calcium (1,250 mg) Tablet,Chewable 200 mg PO Q6H PRN (Reason: Indigestion) Qty: 1 0RF tamsulosin 0.4 mg Capsule 0.4 mg PO QAM Qty: 1 0RF lidocaine [Lidoderm] 5 % Adhesive Patch,Medicated 1 patch transdermal DAILY Qty: 1 0RF ibuprofen 400 mg Tablet 400 mg PO Q6H PRN (Reason: Pain Rated 4-6) Qty: 1 0RF Continued amlodipine 2.5 mg tablet 2.5 mg PO DAILY Qty: 90 1RF cetirizine [Zyrtec] 10 mg tablet 10 mg PO DAILY Qty: 30 0RF albuterol sulfate [Ventolin HFA] 90 mcg/actuation HFA aerosol inhaler 1 inh inhalation Q4H PRN (Reason: shortness of breath or wheezing) Qty: 8.5 0RF ipratropium bromide 42 mcg (0.06 %) spray,non-aerosol 2 spray intranasal TID Qty: 15 5RF Rx Instructions: administer into each nostril levothyroxine [Synthroid] 112 mcg tablet 112 mcg PO DAILY Qty: 60 0RF Discontinued hydrocodone-acetaminophen 5-325 mg tablet 1 tablet PO Q8H PRN (Reason: pain) Qty: 20 0RF tramadol 50 mg tablet 50 mg PO Q8H PRN (Reason: pain) Qty: 20 0RF Date of admission: 04/06/25 08:47 Primary Care Provider: Hill,Fernando B. Admitting Provider: Aviva Lee Attending physician on admission: Aviva Lee Condition: Stable Quality VTE Prophylaxis VTE prophylaxis: mechanical ordered -Patient's previous records reviewed on admission -ER notes reviewed in detail on admission -discussed all findings and current treatment plan with patient/Family/POA -Consultations reviewed for recommendations -Patient's disposition for safe discharge discussed with case technician -radiology imaging, EKG and test results I have personally reviewed and interpreted unless otherwise specified Dictation performed by [employer] (?) direct speech recognition software, therefore access developer variants and typographical errors may occur. Hospitalist MIPS Heart Failure (Exclusion) Patient has history of Heart Transplant or Left Ventricular Assistive Device?: No IF YES, STOP HERE Heart Failure (Qualifier) Patient has current or prior documentation of LVEF less than or equal to 40%, or mod/servere depressed LVSF?: No IF NO, STOP HERE
[2025-04-09 15:29] LABS: SARS-CoV-2 RNA PCR Negative (Negative)
== END 2025-04-09 16:42 ==
LOC: ANHED 21:30 → ANH2MED 22:51
PROVIDERS: Nurse Practitioner Family; Admitting Provider General Practice; Emergency Provider Emergency Medicine; PCP Family Medicine; Visit Provider Internal Medicine
DX: K56.41 Fecal impaction (principal); K52.89 Other specified noninfective gastroenteritis and colitis; R33.9 Retention of urine, unspecified; R26.81 Unsteadiness on feet; S32.031A Stable burst fracture of third lumbar vertebra, initial encounter for closed fracture; M47.26 Other spondylosis with radiculopathy, lumbar region; M80.08XA Age-related osteoporosis with current pathological fracture, vertebra(e), initial encounter for fracture; M41.9 Scoliosis, unspecified; D72.829 Elevated white blood cell count, unspecified; Z20.822 Contact with and (suspected) exposure to COVID-19; I10 Essential (primary) hypertension; E03.9 Hypothyroidism, unspecified; Z82.49 Family history of ischemic heart disease and other diseases of the circulatory system; Z82.3 Family history of stroke; Z82.62 Family history of osteoporosis; Z83.3 Family history of diabetes mellitus
CPT/HCPCS: 36415; 72132; 72148; 74177; 80048; 80053; 81001; 83735; 85025; 85027; 87040; 87493; 87635; 96361; 96365; 96372; 96375; 97110; 97162; 97165; 97530; 97535; 99285; A9270; G0378; J0696; J1836; J1885; J2212; J2250; J2405; J7030; Q9967

== ENCOUNTER 2025-06-01 14:02 | Outpatient (CLI) | payer MEDICARE, SELFPAY ==
--- NOTE | ~2025-06-01 | XR_ITS ---
EXAMINATION: Lumbar spine 3 views: DATE: 06/01/2025. INDICATION: History of fracture. TECHNIQUE: AP, lateral views and spot view were obtained. COMPARISON: MRI of the lumbar spine dated 04/07/2025. FINDINGS: Visualization is limited due to positioning. Osteopenic bones. Compression fractures of T11, L2, L3 and L4 vertebrae consistent with MRI findings. Significant calcific changes of abdominal aorta. IMPRESSION: 1. Significantly Limited visualization due to severe osteopenia bones. Mild scoliosis. Please correlate with DEXA densitometry. 2. Multiple compression fractures as mentioned above, consistent with MRI findings on 04/07/2025. Reviewed, dictated and finalized at location T. CAL OFFICE RECEPTIONIST IMPRESSION: 1. Significantly Limited visualization due to severe osteopenia bones. Mild sco liosis. Please correlate with DEXA densitometry. 2. Multiple compression fractures as mentioned above, consistent with MRI findi ngs on 04/07/2025.
== END 2025-06-01 14:03 | disposition home or self-care (01) ==
LOC: MICIMG 14:03
PROVIDERS: PCP Family Medicine; Visit Provider Family Medicine
DX: M54.50 Low back pain, unspecified (principal)
CPT/HCPCS: 72100